=== PATIENT | female | born 1960 | race Caucasian/White ===

== ENCOUNTER → 2019-08-31 08:59 | Outpatient (CLI) | payer OTHER, SELFPAY ==
[2019-08-31 10:01] LABS: Add Manual Diff / Slide Review NO; Basophils Absolute Auto 0 /uL (0-100); Basophils Percent Auto 0.8 % (0-2); Eosinophils Absolute Auto 200 /uL (0-450); Eosinophils Percent Auto 3.6 % (2-4); Hematocrit 37.6 % (36-46); Lymphocytes Absolute Auto 2100 /uL (1100-4500); Lymphocytes Percent Auto 42.2 % (25-40); Mean Corpuscular HGB Conc 34.7 % (30-36); Mean Corpuscular Hemoglobin 29.5 PG (26-34); Mean Corpuscular Volume 85.2 fL (80-100); Monocytes Absolute Auto 400 /uL (0-900); Monocytes Percent Auto 7.2 % (3-14); Neutrophils Absolute Auto 2300 /uL (1500-7000); Neutrophils Percent Auto 46.2 % (50-75); Platelet Count 274 X10^3/uL (150-400); Red Blood Cell Count 4.42 X10^6/uL (4.0-5.2); Red Cell Distribution Width 12.4 % (11.6-14.8)
[2019-08-31 10:12] LABS: Alanine Aminotransferase 18 IU/L (<35); Albumin 4.5 g/dL (3.5-5.0); Albumin Globulin Ratio 1.9 (1.0-2.8); Alkaline Phosphatase 44 U/L (38-126); Aspartate Aminotransferase 26 IU/L (14-36); Bilirubin Total 0.7 mg/dL (0.2-1.3); Blood Urea Nitrogen 20 mg/dL (7-17); Calcium 9.6 mg/dL (8.4-10.2); Carbon Dioxide 30 mmol/L (22-32); Chloride 102 mmol/L (98-107); Cholesterol 233 mg/dL (140-199); Estimated Glomerular Filt Rate > 60.0 mL/min (>60); Globulin 2.4 g/dL (1.7-4.1); Glucose 89 mg/dL (70-100); HDL Cholesterol 78 mg/dL (40-60); HEMOLYSIS < 15 (0-50); LDL Cholesterol Calculated 143 mg/dL (<100); Potassium 4.4 mmol/L (3.4-5.1); Sodium 138 mmol/L (137-145); Total Protein 6.9 g/dL (6.3-8.2); Triglycerides 59 mg/dL (35-150)
[2019-08-31 10:16] LABS: Rheumatoid Factor < 8.6 IU/mL (<12.0)
[2019-09-05 08:20] LABS: ANA Screen, IFA POSITIVE (NEGATIVE)
== END ==
PROVIDERS: PCP Family Medicine; Visit Provider Naturopath
DX: Z00.00 Encounter for general adult medical examination without abnormal findings (principal); M25.549 Pain in joints of unspecified hand
CPT/HCPCS: 36415; 80053; 80061; 85025; 86038; 86430

== ENCOUNTER → 2020-06-03 09:55 | Outpatient (CLI) | payer OTHER, SELFPAY ==
[2020-06-04 16:59] LABS: COVID19 Sendout Not Detected (Not Detect)
== END ==
PROVIDERS: PCP Family Medicine; Visit Provider Physician Assistant
DX: Z11.59 Encounter for screening for other viral diseases (principal)
CPT/HCPCS: 87635

== ENCOUNTER → 2020-06-11 09:53 | Outpatient (CLI) | payer OTHER, SELFPAY ==
--- NOTE | 2020-06-11 | DI.CT.S_ITS ---
PROCEDURE: CT UE LT WO CON INDICATIONS: Fracture of unspecified part of left clavicle TECHNIQUE: Noncontrast 1-1.5 mm thick sections acquired from the acromioclavicular joint to the inferior scapula, with coronal and sagittal reformatting. COMPARISON: [facility] [place], CR, XR CLAVICLE LEFT, 04/24/2020, 10:45. [facility] [place], CR, XR SHOULDER 2+ VIEWS LEFT, 05/28/2020, 10:21. FINDINGS: Image quality: Excellent. Bones: There is a subacute appearing comminuted distal clavicular shaft fracture. There is up to 3 mm depression of distal clavicle at fracture side and up to 5 mm overlapping of fracture site. Callus formation surrounding clavicular shaft fracture site is seen with up to 4 mm diastasis at fracture site. Partial bony union is seen at distal clavicular shaft fracture site. No other fracture or dislocation is seen. No suspicious bony lesion. Mild acromioclavicular joint osteoarthritic changes are seen. Soft tissues: There is no full-thickness rotator cuff tendon rupture. No significant joint effusion or calcified intra-articular loose body. Visualized left upper lobe is clear. IMPRESSION: 1. Subacute appearing comminuted distal clavicular shaft fracture with minimal depression and overlapping of fracture site as above. Small amount of callus formation surrounding fracture site with suggestion of partial bony fusion. No new fracture or dislocation. 2. Mild acromioclavicular joint osteoarthritis. Dictated by: Lauri Rodriguez M.D. on 06/11/2020 at 10:35 Approved by: Lauri Rodriguez M.D. on 06/11/2020 at 11:25
== END ==
PROVIDERS: PCP Family Medicine; Referring Provider Family Medicine; Visit Provider Orthopaedic Surgery
DX: S42.022A Displaced fracture of shaft of left clavicle, initial encounter for closed fracture (principal); M19.012 Primary osteoarthritis, left shoulder; X58.XXXA Exposure to other specified factors, initial encounter
CPT/HCPCS: 73200

== ENCOUNTER → 2020-08-27 07:47 | Outpatient (CLI) | payer OTHER, SELFPAY ==
[2020-08-27 08:41] LABS: Add Manual Diff / Slide Review NO; Basophils Absolute Auto 0 /uL (0-100); Basophils Percent Auto 0.9 % (0-2); Eosinophils Absolute Auto 200 /uL (0-450); Eosinophils Percent Auto 3.5 % (2-4); Hematocrit 36.4 % (36-46); Hemoglobin 12.2 g/dL (12.0-16.0); Lymphocytes Absolute Auto 2000 /uL (1100-4500); Mean Corpuscular HGB Conc 33.6 % (30-36); Mean Corpuscular Hemoglobin 28.9 PG (26-34); Monocytes Absolute Auto 400 /uL (0-900); Monocytes Percent Auto 7.2 % (3-14); Neutrophils Absolute Auto 2300 /uL (1500-7000); Neutrophils Percent Auto 47.4 % (50-75); Platelet Count 293 X10^3/uL (150-400); Red Blood Cell Count 4.24 X10^6/uL (4.0-5.2); Red Cell Distribution Width 12.8 % (11.6-14.8); White Blood Cell Count 4.9 X10^3/uL (4.5-11.0)
[2020-08-27 09:14] LABS: Alanine Aminotransferase 20 IU/L (<35); Albumin 4.4 g/dL (3.5-5.0); Albumin Globulin Ratio 1.6 (1.0-2.8); Alkaline Phosphatase 48 U/L (38-126); Aspartate Aminotransferase 30 IU/L (14-36); BUN Creatinine Ratio 23.9 (6-22); Bilirubin Total 0.6 mg/dL (0.2-1.3); Blood Urea Nitrogen 21 mg/dL (7-17); Calcium 9.5 mg/dL (8.4-10.2); Carbon Dioxide 31 mmol/L (22-32); Chloride 101 mmol/L (98-107); Cholesterol 246 mg/dL (140-199); Estimated Glomerular Filt Rate > 60.0 mL/min (>60); Globulin 2.7 g/dL (1.7-4.1); Glucose 91 mg/dL (80-110); HDL Cholesterol 81 mg/dL (40-60); HEMOLYSIS < 15 (0-50); LDL Cholesterol Calculated 155 mg/dL (<100); Potassium 4.5 mmol/L (3.4-5.1); Sodium 139 mmol/L (137-145); Total Protein 7.1 g/dL (6.3-8.2); Triglycerides 52 mg/dL (35-150)
[2020-08-27 20:45] LABS: Rubella Antibody IgG 75.6 IU/mL (>15)
[2020-08-28 08:09] LABS: Rubeola Measles IgG > 300.0 AU/mL (Immune >16.4)
== END ==
PROVIDERS: PCP Family Medicine; Referring Provider Family Medicine; Visit Provider Family Medicine
DX: D05.00 Lobular carcinoma in situ of unspecified breast (principal); R91.1 Solitary pulmonary nodule; E78.5 Hyperlipidemia, unspecified; Z78.9 Other specified health status
CPT/HCPCS: 36415; 80053; 80061; 85025; 86735; 86762; 86765

== ENCOUNTER → 2020-08-28 11:51 | Outpatient (CLI) | payer OTHER, SELFPAY ==
--- NOTE | 2020-08-28 11:52 | DI.CT.S_ITS ---
PROCEDURE: CT CHEST WO CON INDICATIONS: follow up left lung nodule TECHNIQUE: Noncontrast 5 mm thick sections acquired from the pulmonary apices to the posterior costophrenic angles. 1 mm lung window, 5 mm thick coronal and sagittal and 7 mm axial MIP reformats were then acquired. For radiation dose reduction, the following was used: automated exposure control, adjustment of mA and/or kV according to patient size. COMPARISON: [facility], CT, CT CHEST ABDOMEN PELVIS WITHOUT CONTRAST, 03/14/2020, 11:47. FINDINGS: Image quality: Excellent. Lungs and pleura: A few small pulmonary nodules. For example: -left upper lobe subpleural 6 mm, (3/68), previously 6 mm. -left major fissure 4 mm, (3/147), previously 4 mm. -right major fissure 3 mm, (3/163), previously 3 mm. No new or enlarging pulmonary nodules. No pulmonary mass. No acute air space opacities. No pleural effusions or pneumothorax. Small right upper tracheocele, unchanged. Central airways are clear. Mediastinum: Heart size is normal. No pericardial effusion. No mediastinal adenopathy by size criteria. Thoracic aorta and central pulmonary arteries are normal in size. Esophagus is normal in caliber. No hiatal hernia. Bones and chest wall: And healing of the distal left clavicle fracture. No suspicious bony lesions. No vertebral body compression fractures. No axillary or supraclavicular adenopathy by size criteria. Thyroid gland is unremarkable. Abdomen: Visualized upper abdominal solid organs and bowel loops appear normal in the absence of contrast. Large left renal low-density cyst measuring at least 8.5 cm, (2/70), partially visualized. 2nd simple appearing left renal cyst measuring 4.2 cm. Small cyst in the right kidney. IMPRESSION: 1. A few small incidental pulmonary nodules which are stable compared to February 2020. Largest measuring 6 mm in the left upper lobe. -follow-up CT in 12 months is recommended to demonstrate stability. 2. No enlarged adenopathy. 3. Healing distal left clavicle fracture. Dictated by: Omer Finch M.D. on 08/28/2020 at 11:37 Approved by: Omer Finch M.D. on 08/28/2020 at 11:57
== END ==
PROVIDERS: PCP Family Medicine; Referring Provider Family Medicine; Visit Provider Family Medicine
DX: R91.8 Other nonspecific abnormal finding of lung field (principal); N28.1 Cyst of kidney, acquired
CPT/HCPCS: 71250

== ENCOUNTER → 2020-08-31 08:59 | Outpatient (CLI) | payer OTHER, SELFPAY | PROVIDERS: PCP Family Medicine; Visit Provider Family Medicine | DX: R30.0 Dysuria (principal) | CPT/HCPCS: 87077; 87086; 87186 ==

== ENCOUNTER → 2020-12-12 09:08 | Outpatient (CLI) | payer OTHER, SELFPAY ==
[2020-12-12 12:21] LABS: COVID19 -Nasal RAPID Negative (Negative)
== END ==
PROVIDERS: PCP Family Medicine; Visit Provider Surgery
DX: Z20.822 Contact with and (suspected) exposure to COVID-19 (principal)
CPT/HCPCS: 87635; C9803

== ENCOUNTER 2020-12-13 06:44 | Day surgery (SDC) | payer OTHER, SELFPAY ==
[2020-12-13] VITALS (7 sets, daily range): BP systolic 105–124; BP diastolic 62–81; PULSE 58–79; RESP 8–16; TEMP 36.3–36.4; O2SAT 95–100; BMI 20.7
--- NOTE | 2020-12-13 07:13 | PM.HP.1 ---
History of Present Illness History of Present Illness Date Patient Seen: 12/13/20 Time Patient Seen: 07:13 Chief complaint: SDC Narrative: This is a 60-year-old woman with personal history of colon polyps here for surveillance colonoscopy. She denies any new symptoms since her last colonoscopy. She specifically denies melena, hematochezia, unexplained abdominal pain, unexplained weight loss. She denies any family history of colon cancer. ROS: Thirteen system review is otherwise negative other than as mentioned below and in HPI. PE: GENERAL: Well groomed and cooperative. Appears stated age. Answers questions promptly and appropriately. Vital signs noted. HENT: Normocephalic, atraumatic. Hearing intact. EYES: Conjunctiva pink, sclera white, no periorbital swelling. CARDIOVASCULAR: Regular rate. No pedal edema. RESPIRATORY: Non-tachypneic, breathing comfortably on room air. GASTROINTESTINAL: Abdomen soft and non-distended GENITALURINARY: No flank tenderness. MUSCULOSKELETAL: Equal tone and mass bilaterally. SKIN: Warm, dry, soft, appropriate color for ethnicity. No other lesions, rashes, or wounds. NEURO: Alert and Oriented X 3. No gross sensory deficits, or cognitive issues. PSYCH: Appropriate affect and mood. Patient History Medical History Abnormal Pap smear of cervix (~1993) Acne Ankle pain (~2018) Chicken pox Closed left clavicular fracture Colon polyps Depression (~1986) Foot fracture (~2011) Human papilloma virus Lung nodule Measles Mumps Osteoarthritis of both hands Pelvic fracture Wears contact lenses Surgical History Anesthesia H/O tubal ligation Status post breast biopsy Status post breast biopsy Status post colonoscopy Status post dilation and curettage Status post hysteroscopy Status post sclerotherapy of varicose veins (~1998) Family & Social History Family History Father Cancer Diabetes mellitus Heart disease Hypertension High cholesterol Mother Age: 85 History of heart disease Mental health problem Lung cancer Sister Mental health problem Sister Heart disease Hyperlipidemia Mental health problem Sister Mental health problem Grandmother Cancer Hypertension Grandfather Stroke Grandmother Mental health problem Lung cancer Social History: household members spouse lives independently Yes Tobacco & Substance use: Smoking Status Never smoker alcohol intake current Meds Home Medications and Allergies Home Medications Medication Instructions Recorded Confirmed Type bupropion HCl 300 mg 24 hr tablet, See Rx Instructions .ROUTE 08/31/20 12/13/20 Rx extended release .COMPLEX #90 tab Allergies Allergy/AdvReac Type Severity Reaction Status Date / Time venom-honey bee Allergy Unknown Verified 12/10/20 08:32 [BEE VENOM (HONEY BEE)] Assessment & Plan Assessment and plan (1) Colon polyps: Problem details: Tubular adenoma, hyperplastic polyps 2016 Qualifiers: Colon location: unspecified part of colon Colon polyp type: hyperplastic Qualified Code(s): K63.5 - Polyp of colon Status: Acute Assessment & Plan narrative: Risks and benefits of screening colonoscopy and possible polypectomy were discussed with the patient including risk of bleeding, perforation, need for additional procedures, risks of anesthesia. The patient desires to proceed with the colonoscopy procedure. The patient said that she had some wakefulness during her prior colonoscopy. We discussed the possibility of rescheduling her with anesthesiologist. She would rather go ahead at this time, and we will be cognizant of her potential need for higher amount of sedation, and potentially call in the anesthesiologist to help us if needed. COVID-19 COVID-19 status: Negative Result date/Date tested (Pos, Neg/Pending): 12/12/20 Time Spent With Patient Time with patient: 15-24 minutes
[2020-12-13] MEDS: SODIUM CHLORIDE 0.9% 1,000 ML 200 ML IV (07:20)
--- NOTE | 2020-12-13 07:36 | PM.OP.ENDO ---
Operative Date/Time/Diagnoses Date of procedure: 12/13/20 Time of procedure: 07:36 Pre-op diagnosis: history colon polyps Post-op diagnosis: other (Aborted colonoscopy due to incomplete prep) Procedure & Clinicians Study performed: Colonoscopy to 70 cm, aborted because of incomplete prep Procedural sedation performed by the endoscopist Same procedure as scheduled: Yes Indications: Personal history of colon polyps, due for surveillance colonoscopy Surgeon: Johanny Francisco Procedure Notes SCOAP/Timeout: Performed Procedure in detail: The patient was brought to the room and placed in left lateral decubitus position with all bony prominences padded. A time-out was performed and then the patient was given procedural sedation starting with 4 mg of Versed and 10 mcg of fentanyl. An additional 2 mg of Versed and 50 micro g of fentanyl were given during the procedure. Vitals were monitored throughout the procedure and remained stable. Once adequately sedated, the procedure was begun. A rectal exam was performed revealing no abnormalities. The colonoscope was then introduced to the rectum and carefully advanced. There was solid stool and bulky fibrous debris throughout the rectum. On attempting to advance , the patient did not tolerate movement of the scope. She was given additional sedation, and turned onto her back, and I was able to advance the scope further. As I reached about 70 cm in the sigmoid and descending colon I continued to see solid stool and fibrous debris. I attempted to irrigate and wash out the debris, but the scope was continually clogging, and so the procedure was then aborted. I carefully examined each mucosal fold is average through the scope for the distal 70 cm of the colon. No abnormalities were seen, although the view was obscured by stool and fibrous debris. The scope was then withdrawn from the rectum the procedure was concluded. The patient tolerated the procedure well and was transferred to the PACU in stable condition. Sedation minutes: 15 Findings: other findings (Incomplete prep resulting in clogging of the scope and poor visualization) Impression: Aborted colonoscopy due to incomplete prep. Patient will need to do a 2 day prep with a low residual diet the week prior. She should also be scheduled with any anesthesiologist for sedation on all for future colonoscopies due to her intolerance of the procedure under conscious sedation. Post-procedure Recommendations: Other recommendation (As above, re-prep and reschedule scope with anesthesiologist for sedation at the patient's convenience) Follow up: as needed Disposition: PACU
[2020-12-13] MEDS: fentaNYL 250 MCG/5 ML INJ IV (07:45)
[2020-12-13] MEDS: MIDAZOLAM 5 MG/5 ML VIAL IV (08:00)
== END 2020-12-13 09:05 | disposition home or self-care (01) ==
PROVIDERS: PCP Family Medicine; Referring Provider Family Medicine; Visit Provider Surgery
PROC: 0DJD8ZZ Inspection of Lower Intestinal Tract, Via Natural or Artificial Opening Endoscopic (ICD-10-PCS; CPT 45378; principal; 2020-12-13 07:45)
DX: Z12.11 Encounter for screening for malignant neoplasm of colon (principal); Z86.010 Personal history of colon polyps; Z53.09 Procedure and treatment not carried out because of other contraindication
CPT/HCPCS: 45378; 99152; J2250; J3010

== ENCOUNTER → 2021-01-04 10:07 | Outpatient (CLI) | payer OTHER, SELFPAY ==
[2021-01-04 10:43] LABS: COVID19 -Nasal RAPID Negative (Negative)
== END ==
PROVIDERS: PCP Family Medicine; Visit Provider Surgery
DX: Z20.822 Contact with and (suspected) exposure to COVID-19 (principal)
CPT/HCPCS: 87635; C9803

== ENCOUNTER 2021-01-07 07:54 | Day surgery (SDC) | payer OTHER, SELFPAY ==
[2021-01-07] VITALS (8 sets, daily range): BP systolic 96–112; BP diastolic 61–67; PULSE 54–93; RESP 10–18; TEMP 36.2–36.6; O2SAT 96–100; BMI 19.5
--- NOTE | 2021-01-07 08:50 | PM.PREOP ---
Pre-operative Note COVID-19 COVID-19 status: Negative Result date/Date tested (Pos, Neg/Pending): 01/04/21 Interval Note History & Physical reviewed/Exam performed by Physician: Yes Changes to H&P: No
--- NOTE | 2021-01-07 09:32 | P.OP.ENDO_ITS ---
Operative Date/Time/Diagnoses Date of procedure: 01/07/21 Time of procedure: 09:32 Pre-op diagnosis: Personal history colon polyps, intolerance of procedural sedation Post-op diagnosis: same (Normal colon on today's exam) Procedure & Clinicians Study performed: Colonoscopy Same procedure as scheduled: Yes Indications: Personal history of colon polyps, unable to complete colonoscopy on prior attempt due to poor prep, and patient tolerance of procedural sedation. Today we have consulted the anesthesiologist to provide propofol for deep s edation, so that the patient would be able to tolerate the procedure. Surgeon: Johanny Francisco Procedure Notes SCOAP/Timeout: Performed Procedure in detail: The patient was brought to the room and placed in left lateral decubitus position with all bony prominences padded. A time-out was performed and then the patient was given MAC sedation with propofol by Dr. Shea. Vitals were monitored throughout the procedure and remained stable. Once adequately sedated, the procedure was begun. A rectal exam was performed revealing no abnormalities. The colonoscope was then introduced to the rectum and advanced to the cecum in the usual fashion. The colon was very tortuous com mon required multiple advance maneuvers to reach the cecum safely. The cecum was identified by the appendiceal orifice, the mucosal tri-fold, and the ileocecal valve. The scope was then retracted while rotating side to side and examining each mucosal fold. A few scattered diverticula were seen in the sigmoid colon. No significant evidence of diverticulitis was seen. At the conclusion of the procedure retroflexion was performed and small grade 1-2 internal hemorrhoids without stigmata of bleeding were seen. The scope was then withdrawn from the rectum the procedure was concluded. The patient tolerated the procedure well and was transferred to the PACU in stable condition. Scope withdrawal time: 7 Findings: diverticulosis Specimen(s): none sent Complications: none Impression: No polyps on today's exam. Mild diverticulosis. Post-procedure Recommendations: Colonscopy in 5 years (Due to history of colon polyps) Follow up: as needed Disposition: PACU
== END 2021-01-07 10:54 | disposition home or self-care (01) ==
PROVIDERS: PCP Family Medicine; Referring Provider Family Medicine; Visit Provider Surgery
PROC: 0DJD8ZZ Inspection of Lower Intestinal Tract, Via Natural or Artificial Opening Endoscopic (ICD-10-PCS; CPT 45378; principal; 2021-01-07 09:15)
DX: Z12.11 Encounter for screening for malignant neoplasm of colon (principal); Z86.010 Personal history of colon polyps; K57.30 Diverticulosis of large intestine without perforation or abscess without bleeding; K64.0 First degree hemorrhoids
CPT/HCPCS: 45378; 99152; J2250; J2704; J3010

== ENCOUNTER → 2021-03-06 12:54 | Outpatient (CLI) | payer OTHER, SELFPAY ==
[2021-03-06 13:00] LABS: Bacteria Urine None Seen; WBC Urine None Seen (0-5/HPF)
[2021-03-06 15:32] LABS: Appearance Urine UA CLEAR; Bilirubin Urine UA NEGATIVE (NEGATIVE); Color Urine UA YELLOW; Glucose Urine UA NEGATIVE (Negative); Ketones Urine UA NEGATIVE (NEGATIVE); Leukocyte Esterase Urine UA NEGATIVE (NEGATIVE); Nitrite Urine UA NEGATIVE (Negative); Occult Blood Urine UA TRACE-LYSED (Negative); Protein Urine UA NEGATIVE (Negative); Urobilinogen Urine UA 0.2 E.U./dL (0.2)
[2021-03-06 15:38] LABS: pH Urine UA 5.5 (4.5-8.0)
[2021-03-06 15:43] LABS: Amorphous Sediment Urine 2+; Culture Indicated Urine Cult Not Indicated; RBC Urine 5-10/HPF (0-5/HPF)
== END ==
PROVIDERS: PCP Family Medicine; Referring Provider Pediatrics; Visit Provider Pediatrics
DX: R30.0 Dysuria (principal)
CPT/HCPCS: 81001

== ENCOUNTER → 2021-08-08 09:49 | Outpatient (CLI) | payer OTHER, SELFPAY ==
--- NOTE | 2021-08-08 | DI.MRI.S_ITS ---
PROCEDURE: MR SHOULDER LT WO CON INDICATIONS: Fracture of unspecified part of left clavicle, sub TECHNIQUE: Noncontrast oblique coronal T2 fast spin echo with fat saturation, oblique sagittal T1 spin echo and T2 fast spin echo with fat saturation, axial T1 spin echo and T2 fast spin echo with fat saturation through the shoulder. COMPARISON: [facility] [place], CR, XR SHOULDER 2+ VIEWS LEFT, 07/23/2021, 11:50. FINDINGS: Image quality: Excellent. Rotator cuff: Mild T2 signal elevation throughout the supraspinatus and infraspinatus tendons at the humeral insertion sites extending to the musculotendinous junctions, indicating tendinopathy. The supraspinatus, infraspinatus, and subscapularis tendons appear intact throughout. Sagittal images demonstrate no muscle atrophy. Bones and bursae: No bone marrow contusions or fractures. Moderate acromioclavicular joint degeneration. The acromion demonstrates conventional anatomy, without an os acromiale. No pathologic subacromial-subdeltoid or subcoracoid bursal fluid is present. Capsule and soft tissues: Labrum is grossly unremarkable The long head of the biceps tendon demonstrates normal location and morphology. The rotator interval appears normal, without fibrosis. The coracohumeral ligament is normal in thickness. IMPRESSION: 1. Supraspinatus and infraspinatus tendinopathy. No rotator cuff tear. 2. Acromioclavicular joint osteoarthritis. Dictated by: Ronnie Contreras M.D. on 08/08/2021 at 9:21 Approved by: oRnnie Contreras M.D. on 08/08/2021 at 9:22
== END ==
PROVIDERS: PCP Family Medicine; Referring Provider Orthopaedic Surgery; Visit Provider Orthopaedic Surgery
DX: S42.002G Fracture of unspecified part of left clavicle, subsequent encounter for fracture with delayed healing (principal); M19.012 Primary osteoarthritis, left shoulder
CPT/HCPCS: 73221

== ENCOUNTER → 2021-11-01 10:05 | Outpatient (CLI) | payer OTHER, SELFPAY ==
--- NOTE | 2021-11-01 10:07 | DI.CT.S_ITS ---
PROCEDURE: CT CHEST WO CON INDICATIONS: F/U lung nodule TECHNIQUE: Noncontrast 5 mm thick sections acquired from the pulmonary apices to the posterior costophrenic angles. 1 mm lung window, 5 mm thick coronal and sagittal and 7 mm axial MIP reformats were then acquired. For radiation dose reduction, the following was used: automated exposure control, adjustment of mA and/or kV according to patient size. COMPARISON: [facility], CT, CT CHEST WO CON, 08/28/2020, 11:53. FINDINGS: Image quality: Excellent. Lungs and pleura: Pulmonary nodules are as follows: 1. Posterior pleural-based left upper lobe, current image 89/4, stable, 6 mm. 2. Decrease in size of left fissural nodule, previously 4 mm, now 3 mm, on current image 169/4. 3. Stable 3 mm right major fissural nodule, current image 182/4. 4. Stable ill-defined 4 mm nodule, right middle lobe, previous image 155/3 and current image 182/4. No new or increasing pulmonary nodules. No acute air space opacities. No pleural effusions or pneumothorax. Central and peripheral airways are patent and normal in caliber. Mediastinum: Heart size is normal. No pericardial effusion. No mediastinal adenopathy by size criteria. Thoracic aorta and central pulmonary arteries are normal in size. Esophagus is normal in caliber. No hiatal hernia. Bones and chest wall: No suspicious bony lesions. No vertebral body compression fractures. No axillary or supraclavicular adenopathy by size criteria. Thyroid gland is unremarkable . Abdomen: Again noted is a large left renal cyst measuring at least 8.5 cm. Visualized upper abdominal solid organs and bowel loops appear normal in the absence of contrast. IMPRESSION: 1. Multiple small pulmonary nodules have been stable dating back to February,, nearly 2 years. These are likely benign pulmonary nodules. Comment: If this patient has a significant smoking history, would recommend yearly lung screen CT. Dictated by: Eddie Ruggiero M.D. on 11/01/2021 at 11:57 Approved by: Eddie Ruggiero M.D. on 11/01/2021 at 12:21
== END ==
PROVIDERS: PCP Family Medicine; Referring Provider Family Medicine; Visit Provider Family Medicine
DX: R91.8 Other nonspecific abnormal finding of lung field (principal); N28.1 Cyst of kidney, acquired
CPT/HCPCS: 71250

== ENCOUNTER → 2021-11-05 07:48 | Outpatient (CLI) | payer OTHER, SELFPAY ==
[2021-11-05 09:17] LABS: Alanine Aminotransferase 17 IU/L (<35); Albumin 4.2 g/dL (3.5-5.0); Albumin Globulin Ratio 1.8 (1.0-2.8); Alkaline Phosphatase 35 U/L (38-126); Aspartate Aminotransferase 27 IU/L (14-36); BUN Creatinine Ratio 24.1 (6-22); Bilirubin Total 0.4 mg/dL (0.2-1.3); Blood Urea Nitrogen 20 mg/dL (7-17); Calcium 9.3 mg/dL (8.4-10.2); Carbon Dioxide 29 mmol/L (22-32); Chloride 105 mmol/L (98-107); Cholesterol 208 mg/dL (140-199); Estimated Glomerular Filt Rate > 60.0 mL/min (>60); Globulin 2.3 g/dL (1.7-4.1); Glucose 90 mg/dL (80-110); HDL Cholesterol 68 mg/dL (40-60); HEMOLYSIS < 15 (0-50); LDL Cholesterol Calculated 129 mg/dL (<100); Potassium 4.4 mmol/L (3.4-5.1); Sodium 139 mmol/L (137-145); Total Protein 6.5 g/dL (6.3-8.2); Triglycerides 55 mg/dL (35-150)
[2021-11-05 09:27] LABS: Vitamin D 25 Hydroxy (D3) 58.8 ng/mL (30.0-100.0)
== END ==
PROVIDERS: PCP Family Medicine; Referring Provider Family Medicine; Visit Provider Family Medicine
DX: D05.00 Lobular carcinoma in situ of unspecified breast; E55.9 Vitamin D deficiency, unspecified; E78.5 Hyperlipidemia, unspecified
CPT/HCPCS: 36415; 80053; 80061; 82306

== ENCOUNTER 2021-12-17 13:42 | Emergency (ER) | payer OTHER, SELFPAY ==
[2021-12-17] VITALS (8 sets, daily range): BP systolic 113–130; BP diastolic 60–76; PULSE 64–80; RESP 16–22; TEMP 36.7; O2SAT 98–100
--- NOTE | 2021-12-17 15:18 | DI.US.S_ITS ---
PROCEDURE: US ABDOMEN LIMITED INDICATIONS: RUQ PAIN TECHNIQUE: Real-time scanning was performed of the abdominal and retroperitoneal organs, with image documentation. COMPARISON: None. FINDINGS: Liver: Liver is normal in size and homogeneous in echotexture. Gallbladder: The gallbladder wall measures 2.1 mm in diameter. No stones, sludge, pericholecystic fluid, or sonographic Frank sign. Biliary ducts: Intrahepatic bile ducts are non-dilated. Extrahepatic bile duct caliber measures 3.7 mm. Normal is 6-7 mm or less in diameter, or 10 mm or less post-cholecystectomy. Pancreas: Visualized portions of the pancreas are sonographically normal. IMPRESSION: No cholelithiasis or findings to suggest choledocholithiasis or acute cholecystitis. Dictated by: Tamia Morin M.D. on 12/17/2021 at 16:20 Approved by: Tamia Morin M.D. on 12/17/2021 at 16:21
[2021-12-17 15:51] LABS: Lactate (Lactic Acid) 0.6 mmol/L (0.7-2.1)
--- NOTE | 2021-12-17 16:36 | ED_ITS ---
HPI - Abdominal Pain <Alfredo Kay PA-C - Last Filed: 12/17/21 17:24> General Chief Complaint: Abdominal Pain Stated Complaint: Severe upper right abd pain- sudden onset Time Seen by Provider: 12/17/21 14:53 Source: patient Mode of arrival: Ambulatory History of Present Illness HPI narrative: 61-year-old female with no reported past medical history presents to the ED with 1 day of right upper quadrant pain, diarrhea. Patient states that she had a 1st episode of diarrhea that was loose stools, without blood, was not dark black, followed by a sharp disabling right upper quadrant pain. Patient had several other episodes of diarrhea in the ED after that. Patient's abdominal pain resolved prior to coming into the ED. denies fever, chills, chest pain, shortness of breath, cough, nausea, vomiting, constipation, lightheadedness, dizziness, syncope. Patient did endorse some cloudy urine a few days ago when s he was traveling. Denies dysuria, frequency, urgency, flank pain. Patient denies history of abdominal surgeries. Patient denies history of gallstones, kidney stones. Related Data Previous Rx's Medication Instructions Recorded bupropion HCl 300 mg 24 hr tablet, 300 mg PO DAILY #90 tab 10/29/21 extended release Allergies Allergy/AdvReac Type Severity Reaction Status Date / Time No Known Drug Allergies Allergy Verified 01/07/21 08:05 Review of Systems <Alfredo Kay PA-C - Last Filed: 12/17/21 17:24> Review of Systems ROS Unobtainable: All systems reviewed & are unremarkable except as noted in HPI and below Constitutional Constitutional: Denies chills, Denies fatigue, Denies fever(s), Denies frequent falls, Denies lethargy and Denies weakness Eyes Eyes: Denies change in vision, Denies eye discharge, Denies irritation and Denies loss of vision ENT Ears, Nose, Mouth, and Throat: Denies change in voice, Denies dizziness, Denies neck pain, Denies sore throat and Denies throat swelling Cardiovascular Cardiovascular: Denies chest pain, Denies irregular heart rhythm, Denies lightheadedness, Denies palpitations, Denies dyspnea, Denies dyspnea on exertion and Denies orthopnea Respiratory Respiratory: Denies cough, Denies dyspnea, Denies dyspnea on exertion and Denies wheezing Gastrointestinal Gastrointestinal: Reports abdominal pain, Denies change in bowel habits, Reports diarrhea, Denies nausea and Denies vomiting Genitourinary Genitourinary: Denies hematuria, Denies flank pain, Denies urinary incontinence and Denies urinary urgency Musculoskeletal Musculoskeletal: Denies back pain, Denies muscle weakness, Denies neck pain, Denies numbness and Denies tingling Integumentary/Breasts Skin/Breast: Denies pruritus, Denies erythema, Denies rash and Denies wounds Neurologic Neurologic: Denies behavioral changes, Denies confusion, Denies dizziness, Denies frequent falls, Denies loss of vision, Denies numbness, Denies tingling and Denies weakness Psychiatric Psychiatric: Denies anxiety, Denies behavioral changes, Denies confusion, Denies depression, Denies homicidal ideation and Denies suicidal ideation Endocrine Endocrine: Denies fatigue, Denies flushing and Denies palpitations Hematologic/Lymphatic Hematologic/Lymphatic: Denies easy bruising Allergic/Immunologic Allergic/Immunologic: Denies urticaria, Denies throat swelling and Denies wheezing Patient History <Alfredo Kay PA-C - Last Filed: 12/17/21 17:24> Medical History Abnormal Pap smear of cervix (~1993) Acne Ankle pain (~2018) Chicken pox Closed left clavicular fracture Colon polyps Depression (~1986) Foot fracture (~2011) Human papilloma virus Lung nodule Measles Mumps Osteoarthritis of both hands Pelvic fracture Wears contact lenses Surgical History Anesthesia H/O tubal ligation Status post breast biopsy Status post breast biopsy Status post colonoscopy Status post dilation and curettage Status post hysteroscopy Status post sclerotherapy of varicose veins (~1998) Family History Father Cancer Diabetes mellitus Heart disease Hypertension High cholesterol Mother Age: 86 History of heart disease Mental health problem Lung cancer Sister Mental health problem Sister Heart disease Hyperlipidemia Mental health problem Sister Mental health problem Grandmother Cancer Hypertension Grandfather Stroke Grandmother Mental health problem Lung cancer Social History marital status: number of children: 3 household members: spouse lives independently: Yes occupational status: other Smoking Status: Never smoker alcohol intake: current substance use type: does not use Smoking Status: Never smoker alcohol intake frequency: a few times a week Substance Use Type: does not use Exam <Alfredo Kay PA-C - Last Filed: 12/17/21 17:24> Initial Vital Signs Initial Vital Signs: Vital Signs Temperature 98.1 F 12/17/21 13:51 Pulse Rate 80 12/17/21 13:51 Respiratory Rate 22 12/17/21 13:51 Blood Pressure 129/60 12/17/21 13:51 Pulse Oximetry 99 12/17/21 13:51 Const General: cooperative, healthy appearing and comfortable HENMT Head: normal to inspection Eyes General: Yes appearance normal, both eyes and all related structures Neck Neck: normal visual inspection Chest Chest: normal inspection of the chest Resp Effort & Inspection: normal respiratory effort Auscultation: clear to auscultation bilaterally Cardio Rate: regular rate Rhythm: regular rhythm GI Inspection: normal to inspection Other: Abdomen is soft, nondistended, tender to palpation in the right upper quadrant. General: No CVA tenderness Back/Spine/Pelvis Back: normal to inspection Skin General: no rashes or lesions noted Neuro General: patient alert, patient awake and patient oriented x3 Psych Appearance: grossly normal Mental Status: mental status grossly normal <Emiliano Espino DO - Last Filed: 12/20/21 00:46> Initial Vital Signs Initial Vital Signs: Vital Signs Temperature 98.1 F 12/17/21 13:51 Pulse Rate 80 12/17/21 13:51 Respiratory Rate 22 12/17/21 13:51 Blood Pressure 129/60 12/17/21 13:51 Pulse Oximetry 99 12/17/21 13:51 Course <Alfredo Kay PA-C - Last Filed: 12/17/21 17:24> Orders Ordered: ED Orders 12/17/21 13:45 Comprehensive Metabolic Panel Stat Lipase Stat Partial Thromboplastin Time Stat Prothrombin Time INR Stat 12/17/21 13:57 Complete Blood Count AUTO DIFF Stat Lactate (Lactic Acid) Stat 12/17/21 14:44 EKG-12 Lead Stat 12/17/21 15:18 US abdomen limited Stat Vital Signs Vital signs: Vital Signs - 8 hr 12/17/21 13:51 12/17/21 15:22 12/17/21 15:30 Temperature 98.1 F Pulse Rate 80 64 66 Respiratory Rate 22 Blood Pressure 129/60 130/74 115/65 Pulse Oximetry 99 98 99 12/17/21 16:00 12/17/21 16:01 12/17/21 16:30 Temperature Pulse Rate 72 72 69 Respiratory Rate Blood Pressure 128/73 113/67 Pulse Oximetry 99 99 100 <Emiliano Espino DO - Last Filed: 12/20/21 00:46> Orders Ordered: ED Orders 12/17/21 13:45 Comprehensive Metabolic Panel Stat Lipase Stat Partial Thromboplastin Time Stat Prothrombin Time INR Stat 12/17/21 13:57 Complete Blood Count AUTO DIFF Stat Lactate (Lactic Acid) Stat 12/17/21 14:44 EKG-12 Lead Stat 12/17/21 15:18 US abdomen limited Stat Vital Signs Vital signs: Vital Signs - 8 hr 12/17/21 13:51 12/17/21 15:22 12/17/21 15:30 Temperature 98.1 F Pulse Rate 80 64 66 Respiratory Rate 22 Blood Pressure 129/60 130/74 115/65 Pulse Oximetry 99 98 99 12/17/21 16:00 12/17/21 16:01 12/17/21 16:30 Temperature Pulse Rate 72 72 69 Respiratory Rate Blood Pressure 128/73 113/67 Pulse Oximetry 99 99 100 MDM - Abdominal Pain <Alfredo Kay PA-C - Last Filed: 12/17/21 17:24> Medical Records Attestation: I reviewed the patient's medical records. Lab Data Attestation: I reviewed the patient's lab results. Lab results narrative: Labs within normal limits. UA negative for UTI. Result diagrams: 12/17/21 13:57 12/17/21 13:45 Labs: Lab Results 12/17/21 12/17/21 12/17/21 Range/Units 13:45 13:45 13:45 WBC (4.5-11.0) X10^3/uL RBC (4.0-5.2) X10^6/uL Hgb (12.0-16.0) g/dL Hct (36-46) % MCV (80-100) fL MCH (26-34) PG MCHC (30-36) % RDW (11.6-14.8) % Plt Count (150-400) X10^3/uL Neut % (Auto) (50-75) % Lymph % (Auto) (25-40) % [place] % (Auto) (3-14) % Eos % (Auto) (2-4) % Baso % (Auto) (0-2) % Neut # (Auto) (4099-4528) /uL Lymph # (Auto) (4520-7988) /uL [place] # (Auto) (0-900) /uL Eos # (Auto) (0-450) /uL Baso # (Auto) (0-100) /uL PT 12.1 (10.1-12.7) SECONDS INR 1.1 (0.9-1.3) APTT 31 (26.4-36.2) SECONDS Sodium 141 (137-145) mmol/L Potassium 4.0 (3.4-5.1) mmol/L Chloride 104 (98-107) mmol/L Carbon Dioxide 30 (22-32) mmol/L BUN 22 H (7-17) mg/dL Creatinine 0.82 (0.52-1.04) mg/dL Estimated GFR > 60 (>60) mL/min BUN/Creatinine Ratio 26.8 H (6-22) Glucose 92 (80-110) mg/dL Lactate (0.7-2.1) mmol/L Calcium 9.1 (8.4-10.2) mg/dL Total Bilirubin 0.4 (0.2-1.3) mg/dL AST 40 H (14-36) IU/L ALT 27 (<35) IU/L Alkaline Phosphatase 45 (38-126) U/L Total Protein 7.3 (6.3-8.2) g/dL Albumin 4.6 (3.5-5.0) g/dL Globulin 2.7 (1.7-4.1) g/dL Albumin/Globulin Ratio 1.7 (1.0-2.8) Lipase 137 (23-300) U/L 12/17/21 12/17/21 Range/Units 13:57 13:57 WBC 6.1 (4.5-11.0) X10^3/uL RBC 3.94 L (4.0-5.2) X10^6/uL Hgb 11.7 L (12.0-16.0) g/dL Hct 34.0 L (36-46) % MCV 86.3 (80-100) fL MCH 29.6 (26-34) PG MCHC 34.3 (30-36) % RDW 12.7 (11.6-14.8) % Plt Count 283 (150-400) X10^3/uL Neut % (Auto) 51.7 (50-75) % Lymph % (Auto) 38.6 (25-40) % [place] % (Auto) 6.7 (3-14) % Eos % (Auto) 2.4 (2-4) % Baso % (Auto) 0.6 (0-2) % Neut # (Auto) 3100 (8353-6815) /uL Lymph # (Auto) 2400 (6115-3348) /uL [place] # (Auto) 400 (0-900) /uL Eos # (Auto) 100 (0-450) /uL Baso # (Auto) 0 (0-100) /uL PT (10.1-12.7) SECONDS INR (0.9-1.3) APTT (26.4-36.2) SECONDS Sodium (137-145) mmol/L Potassium (3.4-5.1) mmol/L Chloride (98-107) mmol/L Carbon Dioxide (22-32) mmol/L BUN (7-17) mg/dL Creatinine (0.52-1.04) mg/dL Estimated GFR (>60) mL/min BUN/Creatinine Ratio (6-22) Glucose (80-110) mg/dL Lactate 0.6 L (0.7-2.1) mmol/L Calcium (8.4-10.2) mg/dL Total Bilirubin (0.2-1.3) mg/dL AST (14-36) IU/L ALT (<35) IU/L Alkaline Phosphatase (38-126) U/L Total Protein (6.3-8.2) g/dL Albumin (3.5-5.0) g/dL Globulin (1.7-4.1) g/dL Albumin/Globulin Ratio (1.0-2.8) Lipase (23-300) U/L Point of care testing: Urine Dip Bedside Urine Glucose Negative Bedside Urine Bilirubin - Negative Bedside Urine Ketone - Negative Urine Specific [place] 1.015 Bedside Urine Occult Blood - Negative Bedside Urine pH 6.0 Bedside Urine Protein - Negative Bedside Urine Urobilinogen - Negative Bedside Urine Nitrite - Negative Bedside Urine Leukocytes - Negative Esterase Imaging Data US - abdomen: Radiologist's Impression: PROCEDURE:? US ABDOMEN LIMITED ? INDICATIONS:? RUQ PAIN ? TECHNIQUE:? Real-time scanning was performed of the abdominal and retroperitoneal organs, w ith image documentation.? ? COMPARISON:? None. ? FINDINGS:? ? Liver:? Liver is normal in size and homogeneous in echotexture.? ? Gallbladder:? The gallbladder wall measures 2.1 mm in diameter.? No stones, sludge, pericholecystic fluid, or sonographic Frank sign.? ? Biliary ducts:? Intrahepatic bile ducts are non-dilated.? Extrahepatic bile duct caliber measures 3.7 mm.? Normal is 6-7 mm or less in diameter, or 10 mm or less post-cholecystectomy.? ? Pancreas:? Visualized portions of the pancreas are sonographically normal.? ? ? IMPRESSION:? No cholelithiasis or findings to suggest choledocholithiasis or acute cholecystitis. ? Dictated by: Tamia Morin M.D. on 12/17/2021 at 16:20 ? ? Approved by: Tamia Morin M.D. on 12/17/2021 at 16:21 ? [facility] Narrative Medical decision making narrative: 61-year-old female with no reported past medical history presents to the ED with 1 day of right upper quadrant pain, diarrhea. Concern for gastroenteritis versus cholecystitis versus biliary colic versus UTI. Will order labs, lactate, ultrasound abdomen, UA. Patient reports no pain while in the ED, no pain medications indicated. Will reassess. CT abdomen pelvis without acute findings. Labs within normal limits. Patient's symptoms likely due to gastroenteritis. Discharged patient home with ED return precautions. Patient verbalized understanding. <Emiliano Espino, DO - Last Filed: 12/20/21 00:46> Lab Data Labs: Lab Results 12/17/21 12/17/21 12/17/21 Range/Units 13:45 13:45 13:45 WBC (4.5-11.0) X10^3/uL RBC (4.0-5.2) X10^6/uL Hgb (12.0-16.0) g/dL Hct (36-46) % MCV (80-100) fL MCH (26-34) PG MCHC (30-36) % RDW (11.6-14.8) % Plt Count (150-400) X10^3/uL Neut % (Auto) (50-75) % Lymph % (Auto) (25-40) % [place] % (Auto) (3-14) % Eos % (Auto) (2-4) % Baso % (Auto) (0-2) % Neut # (Auto) (2002-6676) /uL Lymph # (Auto) (5112-8716) /uL [place] # (Auto) (0-900) /uL Eos # (Auto) (0-450) /uL Baso # (Auto) (0-100) /uL PT 12.1 (10.1-12.7) SECONDS INR 1.1 (0.9-1.3) APTT 31 (26.4-36.2) SECONDS Sodium 141 (137-145) mmol/L Potassium 4.0 (3.4-5.1) mmol/L Chloride 104 (98-107) mmol/L Carbon Dioxide 30 (22-32) mmol/L BUN 22 H (7-17) mg/dL Creatinine 0.82 (0.52-1.04) mg/dL Estimated GFR > 60 (>60) mL/min BUN/Creatinine Ratio 26.8 H (6-22) Glucose 92 (80-110) mg/dL Lactate (0.7-2.1) mmol/L Calcium 9.1 (8.4-10.2) mg/dL Total Bilirubin 0.4 (0.2-1.3) mg/dL AST 40 H (14-36) IU/L ALT 27 (<35) IU/L Alkaline Phosphatase 45 (38-126) U/L Total Protein 7.3 (6.3-8.2) g/dL Albumin 4.6 (3.5-5.0) g/dL Globulin 2.7 (1.7-4.1) g/dL Albumin/Globulin Ratio 1.7 (1.0-2.8) Lipase 137 (23-300) U/L 12/17/21 12/17/21 Range/Units 13:57 13:57 WBC 6.1 (4.5-11.0) X10^3/uL RBC 3.94 L (4.0-5.2) X10^6/uL Hgb 11.7 L (12.0-16.0) g/dL Hct 34.0 L (36-46) % MCV 86.3 (80-100) fL MCH 29.6 (26-34) PG MCHC 34.3 (30-36) % RDW 12.7 (11.6-14.8) % Plt Count 283 (150-400) X10^3/uL Neut % (Auto) 51.7 (50-75) % Lymph % (Auto) 38.6 (25-40) % [place] % (Auto) 6.7 (3-14) % Eos % (Auto) 2.4 (2-4) % Baso % (Auto) 0.6 (0-2) % Neut # (Auto) 3100 (2594-8860) /uL Lymph # (Auto) 2400 (1382-7525) /uL [place] # (Auto) 400 (0-900) /uL Eos # (Auto) 100 (0-450) /uL Baso # (Auto) 0 (0-100) /uL PT (10.1-12.7) SECONDS INR (0.9-1.3) APTT (26.4-36.2) SECONDS Sodium (137-145) mmol/L Potassium (3.4-5.1) mmol/L Chloride (98-107) mmol/L Carbon Dioxide (22-32) mmol/L BUN (7-17) mg/dL Creatinine (0.52-1.04) mg/dL Estimated GFR (>60) mL/min BUN/Creatinine Ratio (6-22) Glucose (80-110) mg/dL Lactate 0.6 L (0.7-2.1) mmol/L Calcium (8.4-10.2) mg/dL Total Bilirubin (0.2-1.3) mg/dL AST (14-36) IU/L ALT (<35) IU/L Alkaline Phosphatase (38-126) U/L Total Protein (6.3-8.2) g/dL Albumin (3.5-5.0) g/dL Globulin (1.7-4.1) g/dL Albumin/Globulin Ratio (1.0-2.8) Lipase (23-300) U/L Point of care testing: Urine Dip Bedside Urine Glucose Negative Bedside Urine Bilirubin - Negative Bedside Urine Ketone - Negative Urine Specific [place] 1.015 Bedside Urine Occult Blood - Negative Bedside Urine pH 6.0 Bedside Urine Protein - Negative Bedside Urine Urobilinogen - Negative Bedside Urine Nitrite - Negative Bedside Urine Leukocytes - Negative Esterase Discharge Plan Departure Patient Disposition: Home Clinical Impression: Abdominal pain Instructions: DI for Abdominal Pain-Adult Activity Restrictions/Additional Instructions: You were evaluated in the ED today for abdominal pain and diarrhea. Your labs, ultrasound of the abdomen did not show any acute findings. Your symptoms are likely due to gastroenteritis caused by something you ate or drink. Please continue to stay well hydrated. Return to the ED if you are unable to keep down liquids or solids, you develop a fever, chills or your abdominal pain worsens. Prescriptions: No Action bupropion HCl 300 mg tablet extended release 24 hr 300 mg PO DAILY Qty: 90 3RF Referrals: Sandra Loja DO [Primary Care Provider] - <Emiliano Espino DO - Last Filed: 12/20/21 00:46> Cosign ED Attending Srinivasaature Attestation: I was immediately available in the department for consultation. Documentation has been reviewed. I agree with assessment and plan.
[2021-12-17 16:43] LABS: PTT Partial Thromboplastin Tim 31 SECONDS (26.4-36.2)
[2021-12-17 16:44] LABS: Alanine Aminotransferase 27 IU/L (<35); Albumin 4.6 g/dL (3.5-5.0); Albumin Globulin Ratio 1.7 (1.0-2.8); Alkaline Phosphatase 45 U/L (38-126); Aspartate Aminotransferase 40 IU/L (14-36); BUN Creatinine Ratio 26.8 (6-22); Bilirubin Total 0.4 mg/dL (0.2-1.3); Blood Urea Nitrogen 22 mg/dL (7-17); Calcium 9.1 mg/dL (8.4-10.2); Carbon Dioxide 30 mmol/L (22-32); Chloride 104 mmol/L (98-107); Estimated Glomerular Filt Rate > 60 mL/min (>60); Globulin 2.7 g/dL (1.7-4.1); Glucose 92 mg/dL (80-110); HEMOLYSIS < 15 (0-50); Lipase 137 U/L (23-300); Sodium 141 mmol/L (137-145); Total Protein 7.3 g/dL (6.3-8.2)
[2021-12-17 16:49] LABS: INR 1.1 (0.9-1.3); Prothrombin Time 12.1 SECONDS (10.1-12.7)
[2021-12-17 17:00] LABS: Add Manual Diff / Slide Review NO; Basophils Absolute Auto 0 /uL (0-100); Basophils Percent Auto 0.6 % (0-2); Eosinophils Absolute Auto 100 /uL (0-450); Eosinophils Percent Auto 2.4 % (2-4); Hemoglobin 11.7 g/dL (12.0-16.0); Lymphocytes Absolute Auto 2400 /uL (1100-4500); Lymphocytes Percent Auto 38.6 % (25-40); Mean Corpuscular HGB Conc 34.3 % (30-36); Mean Corpuscular Hemoglobin 29.6 PG (26-34); Mean Corpuscular Volume 86.3 fL (80-100); Monocytes Absolute Auto 400 /uL (0-900); Monocytes Percent Auto 6.7 % (3-14); Neutrophils Absolute Auto 3100 /uL (1500-7000); Neutrophils Percent Auto 51.7 % (50-75); Platelet Count 283 X10^3/uL (150-400); Red Blood Cell Count 3.94 X10^6/uL (4.0-5.2); Red Cell Distribution Width 12.7 % (11.6-14.8); White Blood Cell Count 6.1 X10^3/uL (4.5-11.0)
== END 2021-12-17 17:25 | disposition home or self-care (01) ==
PROVIDERS: Emergency Medicine; Emergency Provider Student in an Organized Health Care Education/Training Program; Family Provider Family Medicine; PCP Family Medicine
DX: R10.11 Right upper quadrant pain (principal)
CPT/HCPCS: 36415; 76705; 80053; 81003; 83605; 83690; 85025; 85610; 85730; 93005; 99283; 99284

== ENCOUNTER 2022-01-07 09:00 | Outpatient (RCR) | payer OTHER, SELFPAY ==
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
--- NOTE | 2021-11-27 12:00 | PT.OPPOC ---
Physical, Occupational & Speech Therapy At [facility] Current Diagnoses Pain in right hip (11/27/21) Difficulty in walking, not elsewhere classified (11/27/21) Visit Care Team Role Provider Type Sandra Loja DO Attending Provider Physician Family Provider Primary Care Provider Referring Provider Specialty: Family Practice Address: [address] [place] [address], [place], [place], [facility] Email: [email or web address] Plan Of Care PT-OP-T Assessment and Plan Start: 11/25/21 16:57 Freq: Status: Active Protocol: Document 11/27/21 12:00 AW (Rec: 11/28/21 17:54 AW [id number]) Physical Therapy Assessment Rehab Potential Rehabilitation Potential Good Evaluation Complexity Number of Personal Factors/Comorbidities 1-2 Number of Body Systems Impaired 1-2 Clinical Presentation at Evaluation Evolving Impairments Impairments Balance,Gait,Pain,ROM,Soft Tissue Mobility,Strength Goals Three Impairment pain limits walking/hiking tolerance Short Term Goal (STG) Pt will tolerate one hour of walking on gently sloping terrain without increase in baseline pain. STG Duration 6 weeks - 01/08/22 Longterm Goal (LTG) Pt will walk up [place] [address] without increase in baseline pain LTG Duration 12 weeks - 02/19/22 Two Impairment painful ROM Short Term Goal (STG) Pt will tolerate end-range right hip internal roation without increase in baseline pain. STG Duration 6 weeks - 01/08/22 Longterm Goal (LTG) Pt will tolerate end-range right hip flexion without increase in baseline pain. LTG Duration 12 weeks - 02/19/22 One Impairment lacks HEP Short Term Goal (STG) Pt will be instructed in HEP for hip mobility, pelvic alignment, and strength to support therapy services provided in clinic. STG Duration 6 weeks - 01/08/22 Longterm Goal (LTG) Pt will be independent with HEP for hip mobility, pelvic alignment, and strength for return to regular walking and hiking without pain. LTG Duration 12 weeks - 02/19/22 Assessment Summary Assessment Jacqui is a 61 yo woman who attends outpatient physical therapy with complaints of right groin pain which started a few months ago while walking 7+ miles daily on vacation. She is typically active and well-accustomed to walking up hills. Her vacation walking represented an increase in activity only in number of consecutive days. She presents with tenderness along iliopsoas at the inguinal fold and reports a catch which is worse while walking up hills. Signs and symptoms are consistent with psoas tendinopathy, femoral acetabular impingement, or labral pathology. Pt is expected to benefit from skilled physical therapy to manage her pain, improve her pain-free ROM, and return her to regular activity with the goal of walking a [place] this fall in [place]. Physical Therapy Plan Frequency and Duration Frequency of Treatment 2x/Week Duration of Treatment 12 weeks Plan of Care Start Date 11/27/21 Plan of Care End Date 02/19/22 Therapeutic Interventions Therapeutic Interventions Balance Training,Gait Training ,Home Exercise Program,Joint Mobilizations,Manual Therapy, Neuromuscular Re-education, Self-Care/Home Management,Soft Tissue Mobilization, Therapeutic Activities, Therapeutic Exercises Modalities Cold Pack/Ice Massage,Hot Packs Next Visit Focus/Plan Next Note Type Treatment Note Next Visit Plan Review pelvic alignment exercises. STM R iliopsoas. Consider right hip inferior glides. Address pelvic tilt. Initiate posterior chain strengthening. Plan of Care Dates Plan of Care Start Date 11/27/21 Plan of Care End Date 02/19/22 Electronically Signed by: Tory Quintanilla PT 11/28/21 [id number] Please Sign and Return: I have reviewed this Plan of Care and certify that the skilled therapy services above are required to meet the patient?s needs. Physician Signature Date Printed Name and Credentials Clinical Instructor Signature Printed Name and Credentials
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
== END 2022-06-24 11:26 | disposition home or self-care (01) ==
LOC: PHYS 09:00
PROVIDERS: Family Provider Family Medicine; PCP Family Medicine; Referring Provider Family Medicine; Visit Provider Family Medicine
DX: M25.551 Pain in right hip (principal); R26.2 Difficulty in walking, not elsewhere classified
CPT/HCPCS: 97110; 97140; 97161

== ENCOUNTER → 2022-07-18 09:15 | Outpatient (CLI) | payer OTHER, SELFPAY ==
[2022-07-18 10:17] LABS: Influenza A - CEPHEID Flu A NEGATIVE (NEGATIVE); Influenza B - CEPHEID Flu B NEGATIVE (NEGATIVE); Respiratory Syncytial Virus Negative (Negative)
[2022-07-18 10:18] LABS: COVID-19 CEPHEID 4-PLEX PCR Negative (Negative)
== END ==
PROVIDERS: Family Provider Family Medicine; PCP Family Medicine; Visit Provider Physician Assistant
DX: R05.9 Cough, unspecified (principal)
CPT/HCPCS: 0241U

== ENCOUNTER → 2022-11-10 15:32 | Outpatient (CLI) | payer OTHER, SELFPAY ==
--- NOTE | 2022-11-10 15:35 | DI.RAD.S_ITS ---
PROCEDURE: XR CERVICAL SPINE 2V OR 3V INDICATIONS: neck pain TECHNIQUE: Three views of the cervical spine were acquired. COMPARISON: [facility], CT, CT CERVICAL SPINE WITHOUT CONTRAST, 03/14/2020, 11:41. FINDINGS: Bones: No acute fractures or dislocations to the T1 level. There is mild reversal of the normal cervical lordosis, which may be secondary to muscle spasm or positioning. The lateral masses of C1 appear intact on the odontoid view. No suspicious bony lesions. Multilevel disc space narrowing degenerative endplate changes are seen that are most prominent at the C5-6 disc space level. There is multilevel uncovertebral joint and facet hypertrophy. Soft tissues: No prevertebral soft tissue swelling. IMPRESSION: Moderate multilevel spondylosis. MRI could be performed for further evaluation if indicated clinically. Approved by: Lukasz Barry M.D. on 11/10/2022 at 20:12
[2022-11-10 16:16] LABS: Add Manual Diff / Slide Review NO; Basophils Absolute Auto 100 /uL (0-100); Basophils Percent Auto 0.7 % (0-2); Eosinophils Absolute Auto 200 /uL (0-450); Eosinophils Percent Auto 2.8 % (2-4); Hematocrit 37.2 % (36-46); Hemoglobin 12.9 g/dL (12.0-16.0); Lymphocytes Absolute Auto 3500 /uL (1100-4500); Lymphocytes Percent Auto 45.3 % (25-40); Mean Corpuscular HGB Conc 34.6 % (30-36); Mean Corpuscular Hemoglobin 29.7 PG (26-34); Mean Corpuscular Volume 85.9 fL (80-100); Monocytes Absolute Auto 500 /uL (0-900); Monocytes Percent Auto 6.6 % (3-14); Neutrophils Absolute Auto 3500 /uL (1500-7000); Neutrophils Percent Auto 44.6 % (50-75); Platelet Count 315 X10^3/uL (150-400); Red Blood Cell Count 4.33 X10^6/uL (4.0-5.2); Red Cell Distribution Width 12.7 % (11.6-14.8); White Blood Cell Count 7.8 X10^3/uL (4.5-11.0)
[2022-11-10 16:35] LABS: Alanine Aminotransferase 23 IU/L (<35); Albumin 4.7 g/dL (3.5-5.0); Albumin Globulin Ratio 1.7 (1.0-2.8); Alkaline Phosphatase 51 U/L (38-126); Aspartate Aminotransferase 30 IU/L (14-36); BUN Creatinine Ratio 19.5 (6-22); Bilirubin Total 0.5 mg/dL (0.2-1.3); Blood Urea Nitrogen 16 mg/dL (7-17); Calcium 9.5 mg/dL (8.4-10.2); Carbon Dioxide 29 mmol/L (22-32); Chloride 101 mmol/L (98-107); Estimated Glomerular Filt Rate > 60 mL/min (>60); Globulin 2.8 g/dL (1.7-4.1); Glucose 71 mg/dL (80-110); HEMOLYSIS < 15 (0-50); Potassium 4.3 mmol/L (3.4-5.1); Sodium 139 mmol/L (137-145); Total Protein 7.5 g/dL (6.3-8.2)
== END ==
PROVIDERS: Family Provider Family Medicine; PCP Family Medicine; Referring Provider Family Medicine; Visit Provider Family Medicine
DX: M47.812 Spondylosis without myelopathy or radiculopathy, cervical region (principal); M54.2 Cervicalgia; D64.9 Anemia, unspecified; R74.01 Elevation of levels of liver transaminase levels
CPT/HCPCS: 36415; 72040; 80053; 85025

== ENCOUNTER → 2023-03-06 07:05 | Outpatient (CLI) | payer OTHER, SELFPAY ==
--- NOTE | 2023-03-06 07:08 | DI.RAD.S_ITS ---
PROCEDURE: XR HUMERUS LT 2V INDICATIONS: Pain left distal medial humerus x 2 months TECHNIQUE: 2 views of the humerus were acquired. COMPARISON: None. FINDINGS: Bones: No fractures or dislocations. No suspicious bony lesions. Mild acromioclavicular osteoarthritis. Soft tissues: No suspicious soft tissue calcifications. IMPRESSION: No acute fracture or dislocation. Dictated by: Jimbo Yoo M.D. on 03/06/2023 at 9:18 Approved by: Jimbo Yoo M.D. on 03/06/2023 at 9:19
--- NOTE | 2023-03-06 07:08 | DI.MRI.S_ITS ---
PROCEDURE: MR CERVICAL SPINE WO CON INDICATIONS: Neck pain; weakness L hand; pain L distal humerus TECHNIQUE: Noncontrast sagittal T1 spin echo and T2 fast spin echo, sagittal STIR, foraminal oblique sagittal T2 fast spin echo, and axial gradient echo or T2 fast spin echo through the cervical spine. COMPARISON: [facility], CT, CT CERVICAL SPINE WITHOUT CONTRAST, 03/14/2020, 11:41. [facility], CR, XR CERVICAL SPINE 2V OR 3V, 11/10/2022, 15:31. FINDINGS: Image quality: Excellent. Alignment and Curvature: There is loss of normal cervical lordosis. 2 mm of anterolisthesis of C3 on C4. 2 mm of retrolisthesis of C5 on C6 and C6 on C7. Bone Marrow: Marrow demonstrates normal overall signal. Mild reactive signal throughout the endplates of the cervical and upper thoracic spine. Spinal Cord: Visualized spinal cord has normal size and signal. No cerebellar tonsillar herniation. Paraspinous Soft Tissues: No paravertebral masses. Prevertebral soft tissues are normal in thickness. C2-C3: Mild disc desiccation and diffuse disc bulge with superimposed small central protrusion. Mild facet and uncovertebral hypertrophy bilaterally. Mild canal stenosis. Mild right foraminal stenosis. No left foraminal stenosis. C3-C4: Moderate disc desiccation. Mild diffuse disc bulge. Mild facet and uncovertebral hypertrophy bilaterally. Mild canal stenosis. Mild bilateral foraminal stenosis. C4-C5: Mild disc desiccation and diffuse disc bulge. Mild facet and uncovertebral hypertrophy. Mild canal stenosis. Mild bilateral foraminal stenosis. C5-C6: Moderate disc height loss and desiccation. Mild diffuse disc bulge with superimposed broad-based left posterolateral protrusion/osteophyte. Mild facet and uncovertebral hypertrophy bilaterally. Moderate to severe canal stenosis. Minimal anterior cord flattening. Severe left and moderate right foraminal stenosis. Left C6 nerve root compression. C6-C7: Moderate disc desiccation. Mild disc height loss and diffuse disc bulge. Mild facet and uncovertebral hypertrophy bilaterally. Moderate canal stenosis. Moderate bilateral foraminal stenosis. C7-T1: Moderate disc desiccation. Mild facet and uncovertebral hypertrophy. No significant canal stenosis. Mild bilateral foraminal stenosis. IMPRESSION: 1. Multilevel degenerative disc and facet disease, as well as uncovertebral hypertrophy. 2. Multilevel canal stenoses, worst at C5-C6 where there is minimal cord flattening. 3. Multilevel foraminal stenoses, worst at C5-C6 where there is associated intraforaminal nerve root compression. Recommend correlation with clinical symptoms to ascertain relevance of this finding. Dictated by: Ronnie Contreras M.D. on 03/06/2023 at 8:47 Approved by: Ronnie Contreras M.D. on 03/06/2023 at 9:08
[2023-03-06 09:46] LABS: Add Manual Diff / Slide Review NO; Basophils Absolute Auto 0 /uL (0-100); Basophils Percent Auto 0.9 % (0-2); Eosinophils Absolute Auto 200 /uL (0-450); Eosinophils Percent Auto 5.4 % (2-4); Hematocrit 35.6 % (36-46); Hemoglobin 12.3 g/dL (12.0-16.0); Lymphocytes Absolute Auto 1600 /uL (1100-4500); Lymphocytes Percent Auto 36.4 % (25-40); Mean Corpuscular HGB Conc 34.5 % (30-36); Mean Corpuscular Hemoglobin 29.9 PG (26-34); Mean Corpuscular Volume 86.6 fL (80-100); Monocytes Absolute Auto 400 /uL (0-900); Monocytes Percent Auto 8.3 % (3-14); Neutrophils Absolute Auto 2100 /uL (1500-7000); Platelet Count 275 X10^3/uL (150-400); Red Cell Distribution Width 12.7 % (11.6-14.8); White Blood Cell Count 4.3 X10^3/uL (4.5-11.0)
[2023-03-06 10:20] LABS: Alanine Aminotransferase 23 IU/L (<35); Albumin 4.3 g/dL (3.5-5.0); Albumin Globulin Ratio 1.5 (1.0-2.8); Alkaline Phosphatase 44 U/L (38-126); Aspartate Aminotransferase 34 IU/L (14-36); BUN Creatinine Ratio 18.4 (6-22); Bilirubin Total 0.4 mg/dL (0.2-1.3); Blood Urea Nitrogen 14 mg/dL (7-17); C-Reactive Protein Quant < 0.5 mg/dL (<1.0); Calcium 8.7 mg/dL (8.4-10.2); Carbon Dioxide 34 mmol/L (22-32); Chloride 101 mmol/L (98-107); Cholesterol 211 mg/dL (140-199); Estimated Glomerular Filt Rate > 60 mL/min (>60); Globulin 2.8 g/dL (1.7-4.1); Glucose 86 mg/dL (80-110); HDL Cholesterol 66 mg/dL (40-60); HEMOLYSIS < 15 (0-50); LDL Cholesterol Calculated 127 mg/dL (<100); Potassium 4.1 mmol/L (3.4-5.1); Rheumatoid Factor < 8.6 IU/mL (<12.0); Sodium 139 mmol/L (137-145); Total Protein 7.1 g/dL (6.3-8.2); Triglycerides 91 mg/dL (35-150)
[2023-03-06 10:32] LABS: Free T3, Triiodothyronine Free 3.25 pg/mL (2.77-5.27); Free T4, Direct Thyroxine 0.91 ng/dL (0.78-2.19)
[2023-03-06 10:51] LABS: Ferritin 16 ng/mL (11-264)
[2023-03-07 09:30] LABS: Thyroid Peroxidase Antibodies 14 IU/mL (0-34)
== END ==
PROVIDERS: Naturopath; PCP Physician Assistant; Referring Provider Physician Assistant; Visit Provider Physician Assistant
DX: Z00.00 Encounter for general adult medical examination without abnormal findings (principal); M47.22 Other spondylosis with radiculopathy, cervical region; M48.02 Spinal stenosis, cervical region; M50.11 Cervical disc disorder with radiculopathy, high cervical region; M89.8X2 Other specified disorders of bone, upper arm; M25.549 Pain in joints of unspecified hand; R53.83 Other fatigue; Z86.2 Personal history of diseases of the blood and blood-forming organs and certain disorders involving the immune mechanism
CPT/HCPCS: 36415; 72141; 73060; 80053; 80061; 82728; 84439; 84443; 84481; 85025; 86140; 86376; 86430

== ENCOUNTER → 2023-03-26 14:20 | Outpatient (CLI) | payer OTHER, SELFPAY | PROVIDERS: PCP Family Medicine; Referring Provider Physician Assistant; Visit Provider Physician Assistant | DX: R00.0 Tachycardia, unspecified (principal); R00.2 Palpitations | CPT/HCPCS: 93246 ==

== ENCOUNTER 2023-04-03 14:34 | Emergency (ER) | payer OTHER, SELFPAY ==
[2023-04-03 14:54] VITALS: BP 140/69; PULSE 82; RESP 20; TEMP 36.8; O2SAT 100; BMI 20.7
--- NOTE | 2023-04-03 15:15 | DI.RAD.S_ITS ---
PROCEDURE: XR CHEST 1V INDICATIONS: chest pain TECHNIQUE: One view of the chest was acquired. COMPARISON: None. FINDINGS: Surgical changes and devices: Cardiac monitoring device. Lungs and pleura: Lungs are clear. No pleural effusions or pneumothorax. Mediastinum: Mediastinal contours appear normal. Heart size is normal. Bones and chest wall: No suspicious bony lesions. Overlying soft tissues appear unremarkable. IMPRESSION: No acute cardiopulmonary abnormality. Dictated by: Omer Finch M.D. on 04/03/2023 at 15:24 Approved by: Omer Finch M.D. on 04/03/2023 at 15:26
[2023-04-03 16:35] LABS: Add Manual Diff / Slide Review NO; Basophils Absolute Auto 0 /uL (0-100); Basophils Percent Auto 0.4 % (0-2); Eosinophils Absolute Auto 300 /uL (0-450); Eosinophils Percent Auto 5.1 % (2-4); Hematocrit 34.5 % (36-46); Lymphocytes Absolute Auto 2400 /uL (1100-4500); Lymphocytes Percent Auto 35.1 % (25-40); Mean Corpuscular HGB Conc 34.7 % (30-36); Mean Corpuscular Volume 86.6 fL (80-100); Monocytes Absolute Auto 500 /uL (0-900); Monocytes Percent Auto 7.8 % (3-14); Neutrophils Absolute Auto 3500 /uL (1500-7000); Neutrophils Percent Auto 51.6 % (50-75); Platelet Count 292 X10^3/uL (150-400); Red Blood Cell Count 3.98 X10^6/uL (4.0-5.2); Red Cell Distribution Width 12.6 % (11.6-14.8); White Blood Cell Count 6.8 X10^3/uL (4.5-11.0)
[2023-04-03 16:39] LABS: Prothrombin Time 10.9 SECONDS (10.1-12.7)
[2023-04-03 16:42] LABS: PTT Partial Thromboplastin Tim 28 SECONDS (26-36)
[2023-04-03 16:45] LABS: Alanine Aminotransferase 30 IU/L (<35); Albumin 4.6 g/dL (3.5-5.0); Albumin Globulin Ratio 1.7 (1.0-2.8); Alkaline Phosphatase 42 U/L (38-126); Aspartate Aminotransferase 36 IU/L (14-36); BUN Creatinine Ratio 25.6 (6-22); Bilirubin Total 0.4 mg/dL (0.2-1.3); Blood Urea Nitrogen 22 mg/dL (7-17); Calcium 9.5 mg/dL (8.4-10.2); Carbon Dioxide 30 mmol/L (22-32); Chloride 101 mmol/L (98-107); Creatine Kinase 160 U/L (30-135); Estimated Glomerular Filt Rate > 60 mL/min (>60); Globulin 2.7 g/dL (1.7-4.1); Glucose 82 mg/dL (80-110); HEMOLYSIS 18 (0-50); Lipase 120 U/L (23-300); Magnesium 2.2 mg/dL (1.6-2.3); Potassium 4.4 mmol/L (3.4-5.1); Sodium 139 mmol/L (137-145); Total Protein 7.3 g/dL (6.3-8.2)
[2023-04-03 16:55] LABS: Troponin I < 0.012 ng/mL (0.01-0.034)
--- NOTE | 2023-04-03 18:03 | ED_ITS ---
HPI - Arrhythmia/Palpitations <Jennifer Fritz PA-C - Last Filed: 04/03/23 18:18> General Chief Complaint: Arrhythmia/Palpitations Stated Complaint: heart racing/wont stop Time Seen by Provider: 04/03/23 17:48 Source: patient Mode of arrival: Ambulatory History of Present Illness HPI narrative: Patient is a 62-year-old female who presents with concern for palpitations. She currently has a Zio monitor from her primary care because of her history of palpitations, she has had it on an on for about 1 week and plans to have it on for 1 more week more. She reports palpitations for greater than 5 minutes today while waiting for her oil change. She did not have any chest pain or shortness of breath when this happened. Related Data Home Medications Medication Instructions Recorded Confirmed cholecalciferol (vitamin D3) PO 03/23/23 03/23/23 mv,iron,hnz-FJ-gzqhtui cmb.24 PO 03/23/23 03/23/23 tumeric 100 mg-reina 150 mg-olive cap PO 03/23/23 03/23/23 50 mg-oreg 150 mg-caprylate capsule Previous Rx's Medication Instructions Recorded cyclobenzaprine 5 mg tablet 5 mg PO BEDTIME PRN muscle spasm 11/10/22 #30 tabs bupropion HCl 300 mg 24 hr tablet, See Rx Instructions .Route 01/05/23 extended release .COMPLEX #90 tabs alprazolam 0.5 mg tablet 0.5 mg PO ONCE #2 tabs 02/17/23 Allergies Allergy/AdvReac Type Severity Reaction Status Date / Time No Known Drug Allergies Allergy Verified 04/03/23 14:58 Review of Systems <Jennifer Fritz PA-C - Last Filed: 04/03/23 18:18> Review of Systems ROS Unobtainable: All systems reviewed & are unremarkable except as noted in HPI and below Patient History <Jennifer Fritz PA-C - Last Filed: 04/03/23 18:18> Medical History Abnormal Pap smear of cervix (~1993) Acne Ankle pain (~2018) Chicken pox Closed left clavicular fracture Colon polyps Depression (~1986) Foot fracture (~2011) Human papilloma virus Lung nodule Measles Mumps Osteoarthritis of both hands Pelvic fracture Wears contact lenses Surgical History Anesthesia H/O tubal ligation Status post breast biopsy Status post breast biopsy Status post colonoscopy Status post dilation and curettage Status post hysteroscopy Status post sclerotherapy of varicose veins (~1998) Family History Father Cancer Diabetes mellitus Heart disease Hypertension High cholesterol Mother Age: 88 History of heart disease Mental health problem Lung cancer Sister Mental health problem Sister Heart disease Hyperlipidemia Mental health problem Sister Mental health problem Grandmother Cancer Hypertension Grandfather Stroke Grandmother Mental health problem Lung cancer Social History marital status: number of children: 3 household members: spouse lives independently: Yes occupational status: other Smoking Status: Never smoker alcohol intake: current substance use type: does not use Smoking Status: Never smoker alcohol intake frequency: a few times a week Substance Use Type: does not use Exam <Jennifer Fritz PA-C - Last Filed: 04/03/23 18:18> Narrative Exam Narrative: GENERAL: 62 year old patient appears stated age. Well-developed patient, in mild distress. NEURO: AOx3. CARDIOVASCULAR: Regular rate and rhythm without murmurs, gallops, or rubs. RESPIRATORY: Clear to auscultation. Breath sounds equal bilaterally. No wheezes, rales, or rhonchi. EXTREMITIES: No edema or joint tenderness. SKIN: No rash or erythema of visible areas Initial Vital Signs Initial Vital Signs: Vital Signs Temperature 98.2 F 04/03/23 14:54 Pulse Rate 82 04/03/23 14:54 Respiratory Rate 20 04/03/23 14:54 Blood Pressure 140/69 04/03/23 14:54 Pulse Oximetry 100 04/03/23 14:54 Oxygen Delivery Method Room Air 04/03/23 14:54 <Yvette Resendiz DO - Last Filed: 04/03/23 19:41> Initial Vital Signs Initial Vital Signs: Vital Signs Temperature 98.2 F 04/03/23 14:54 Pulse Rate 82 04/03/23 14:54 Respiratory Rate 20 04/03/23 14:54 Blood Pressure 140/69 04/03/23 14:54 Pulse Oximetry 100 04/03/23 14:54 Oxygen Delivery Method Room Air 04/03/23 14:54 Course <Jennifer Fritz PA-C - Last Filed: 04/03/23 18:18> Orders Ordered: ED Orders 04/03/23 15:00 EKG-12 Lead Stat 04/03/23 15:15 XR chest 1V Stat 04/03/23 16:15 Complete Blood Count AUTO DIFF Stat Comprehensive Metabolic Panel Stat Lipase Stat Magnesium Stat PTT Partial Thromboplastin Gabriele Stat Prothrombin Time INR Stat Troponin & CK Cardiac Panel Stat Vital Signs Vital signs: Vital Signs - 8 hr 04/03/23 14:54 04/03/23 18:14 Temperature 98.2 F Pulse Rate 82 72 Respiratory Rate 20 12 Blood Pressure 140/69 126/67 Pulse Oximetry 100 98 Oxygen Delivery Method Room Air Room Air <Yvette Resendiz DO - Last Filed: 04/03/23 19:41> Orders Ordered: ED Orders 04/03/23 15:00 EKG-12 Lead Stat 04/03/23 15:15 XR chest 1V Stat 04/03/23 16:15 Complete Blood Count AUTO DIFF Stat Comprehensive Metabolic Panel Stat Lipase Stat Magnesium Stat PTT Partial Thromboplastin Gabriele Stat Prothrombin Time INR Stat Troponin & CK Cardiac Panel Stat Vital Signs Vital signs: Vital Signs - 8 hr 04/03/23 14:54 04/03/23 18:14 Temperature 98.2 F Pulse Rate 82 72 Respiratory Rate 20 12 Blood Pressure 140/69 126/67 Pulse Oximetry 100 98 Oxygen Delivery Method Room Air Room Air MDM - Arrhythmia/Palpitations <Jennifer Fritz PA-C - Last Filed: 04/03/23 18:18> Lab Data 04/03/23 16:15 04/03/23 16:15 Labs: Lab Results 04/03/23 04/03/23 04/03/23 Range/Units 16:15 16:15 16:15 WBC 6.8 (4.5-11.0) X10^3/uL RBC 3.98 L (4.0-5.2) X10^6/uL Hgb 12.0 (12.0-16.0) g/dL Hct 34.5 L (36-46) % MCV 86.6 (80-100) fL MCH 30.0 (26-34) PG MCHC 34.7 (30-36) % RDW 12.6 (11.6-14.8) % Plt Count 292 (150-400) X10^3/uL Neut % (Auto) 51.6 (50-75) % Lymph % (Auto) 35.1 (25-40) % [place] % (Auto) 7.8 (3-14) % Eos % (Auto) 5.1 H (2-4) % Baso % (Auto) 0.4 (0-2) % Neut # (Auto) 3500 (7109-2578) /uL Lymph # (Auto) 2400 (3449-9058) /uL [place] # (Auto) 500 (0-900) /uL Eos # (Auto) 300 (0-450) /uL Baso # (Auto) 0 (0-100) /uL PT 10.9 (10.1-12.7) SECONDS INR 1.0 (0.9-1.3) APTT 28 (26-36) SECONDS Sodium 139 (137-145) mmol/L Potassium 4.4 (3.4-5.1) mmol/L Chloride 101 (98-107) mmol/L Carbon Dioxide 30 (22-32) mmol/L BUN 22 H (7-17) mg/dL Creatinine 0.86 (0.52-1.04) mg/dL Estimated GFR > 60 (>60) mL/min BUN/Creatinine Ratio 25.6 H (6-22) Glucose 82 (80-110) mg/dL Calcium 9.5 (8.4-10.2) mg/dL Magnesium 2.2 (1.6-2.3) mg/dL Total Bilirubin 0.4 (0.2-1.3) mg/dL AST 36 (14-36) IU/L ALT 30 (<35) IU/L Alkaline Phosphatase 42 (38-126) U/L Total Creatine Kinase 160 H (30-135) U/L Troponin I < 0.012 (0.01-0.034) ng/mL Total Protein 7.3 (6.3-8.2) g/dL Albumin 4.6 (3.5-5.0) g/dL Globulin 2.7 (1.7-4.1) g/dL Albumin/Globulin Ratio 1.7 (1.0-2.8) Lipase 120 (23-300) U/L MDM Narrative Medical decision making narrative: Multiple etiologies for patient's symptoms considered including, but not limited to: Palpitations, UT, anxiety, pericarditis. EKG, chest x-ray, labs, troponin all reassuring today. Patient has surveillance monitor on, will follow up with primary care and seek referral to Cardiology. Return to ER for chest pain or shortness of breath. Patient's symptoms improved over duration of stay with above-stated therapies. Findings and discharge diagnosis discussed with patient/family followed by verbalization of understanding Return precautions discussed with patient/family whom verbalize understanding of diagnosis and plan <Yvette Resendiz, DO - Last Filed: 04/03/23 19:41> Lab Data Labs: Lab Results 04/03/23 04/03/23 04/03/23 Range/Units 16:15 16:15 16:15 WBC 6.8 (4.5-11.0) X10^3/uL RBC 3.98 L (4.0-5.2) X10^6/uL Hgb 12.0 (12.0-16.0) g/dL Hct 34.5 L (36-46) % MCV 86.6 (80-100) fL MCH 30.0 (26-34) PG MCHC 34.7 (30-36) % RDW 12.6 (11.6-14.8) % Plt Count 292 (150-400) X10^3/uL Neut % (Auto) 51.6 (50-75) % Lymph % (Auto) 35.1 (25-40) % [place] % (Auto) 7.8 (3-14) % Eos % (Auto) 5.1 H (2-4) % Baso % (Auto) 0.4 (0-2) % Neut # (Auto) 3500 (5779-8734) /uL Lymph # (Auto) 2400 (6832-7007) /uL [place] # (Auto) 500 (0-900) /uL Eos # (Auto) 300 (0-450) /uL Baso # (Auto) 0 (0-100) /uL PT 10.9 (10.1-12.7) SECONDS INR 1.0 (0.9-1.3) APTT 28 (26-36) SECONDS Sodium 139 (137-145) mmol/L Potassium 4.4 (3.4-5.1) mmol/L Chloride 101 (98-107) mmol/L Carbon Dioxide 30 (22-32) mmol/L BUN 22 H (7-17) mg/dL Creatinine 0.86 (0.52-1.04) mg/dL Estimated GFR > 60 (>60) mL/min BUN/Creatinine Ratio 25.6 H (6-22) Glucose 82 (80-110) mg/dL Calcium 9.5 (8.4-10.2) mg/dL Magnesium 2.2 (1.6-2.3) mg/dL Total Bilirubin 0.4 (0.2-1.3) mg/dL AST 36 (14-36) IU/L ALT 30 (<35) IU/L Alkaline Phosphatase 42 (38-126) U/L Total Creatine Kinase 160 H (30-135) U/L Troponin I < 0.012 (0.01-0.034) ng/mL Total Protein 7.3 (6.3-8.2) g/dL Albumin 4.6 (3.5-5.0) g/dL Globulin 2.7 (1.7-4.1) g/dL Albumin/Globulin Ratio 1.7 (1.0-2.8) Lipase 120 (23-300) U/L ECG Data Attestation: I personally reviewed and interpreted this ECG as follows: Interpretation: Sinus rhythm rate of 72 LA 160 QRS 88 QTC [address] No acute ST elevation depression noted. Patient has prior from 12/17/[address]. Discharge Plan Departure Patient Disposition: Home Clinical Impression: Heart palpitations Instructions: DI for Palpitations Activity Restrictions/Additional Instructions: *You have been diagnosed with likely palpitations. We did not see anything on your labs, EKG, or chest x-ray today that is concerning for heart disease, or arrhythmia. I would recommend that you make an appointment to follow up with your primary care to review the results of your cardiac test, start taking a baby aspirin (81mg) daily to prevent heart attack, and request referral to Cardiology for evaluation and echocardiogram. Please return to the emergency room if you develop chest pain or shortness of breath with your palpitations. *What to do: *Please continue to take your regular medications as directed. [ ] New medication prescriptions sent to your pharmacy: [ ] [ ] New medication written as a paper prescription [x ] No new medications given *Please follow up with your primary care provider in 2-3 days, call for an appointment. Let them know you were seen in the Emergency Department and that we ask that you be seen in follow up. We will electronically transmit a record of today's note if your PCP is in our system *If you do not have a primary care provider please contact the [facility] Resource line at [phone]. They will ask some questions about your medical history and help get you set up with a doctor in the community. *Return to Emergency Department if you should have any new, worsening or concerning symptoms, such as [fever greater than 101 F, shaking chills, worsening pain, persistent vomiting or other bothersome symptoms] Prescriptions: No Action cyclobenzaprine 5 mg tablet 5 mg PO BEDTIME PRN (Reason: muscle spasm) Qty: 30 0RF alprazolam 0.5 mg tablet 0.5 mg PO ONCE Qty: 2 0RF Rx Instructions: Take one tablet one hour prior to procedure. May repeat once if needed cholecalciferol (vitamin D3) PO mv,iron,krr-CF-xdlbuig cmb.24 PO oozlvwv-wewb-dlcjx-oreg-capryl 100 mg-150 mg- 50 mg-150 mg capsule PO bupropion HCl 300 mg tablet extended release 24 hr See Rx Instructions .ROUTE .COMPLEX Qty: 90 2RF Dose Instruction: take 1 tablet by mouth once daily Rx Instructions: take 1 tablet by mouth once daily Referrals: Sandra Loja DO [Primary Care Provider] - Stand Alone Forms: Patient Portal/API <Yvette Resendiz DO - Last Filed: 04/03/23 19:41> Cosign ED Attending Srinivasaature Attestation: I was immediately available in the department for consultation. Documentation has been reviewed.
[2023-04-03 18:14] VITALS: BP 126/67; PULSE 72; RESP 12; O2SAT 98
== END 2023-04-03 18:17 | disposition home or self-care (01) ==
PROVIDERS: Emergency Medicine; Emergency Provider Physician Assistant; PCP Family Medicine
DX: R00.2 Palpitations (principal)
CPT/HCPCS: 36415; 71045; 80053; 82550; 83690; 83735; 84484; 85025; 85610; 85730; 93005; 93010; 99284

== ENCOUNTER → 2023-04-21 | Outpatient (CLI) | payer OTHER, SELFPAY ==
--- NOTE | 2023-04-22 10:21 | DI.NM.S_ITS ---
DATE OF SERVICE: 04/21/2023 PROCEDURE: Exercise treadmill stress test without imaging. ORDERING PROVIDER: Guy Delvalle Jr, MD INDICATIONS: The patient is a 62-year-old female with a history of rapid palpitations. FINDINGS: 1. The patient was able to exercise for 4 minutes and 43 seconds on a standard Baldomero protocol but this was a submaximal test due to stoppage because of rapid SVT with heart rate up to 188 BPM. 2. Her resting ECG showed normal sinus rhythm at 78 BPM with a normal-appearing P wave and normal ST segments. She had a normal gradual increase in heart rate until 3 minutes and 11 seconds of exercise, when she had an abrupt increase from 120 to 180 BPM with a regular narrow-complex tachycardia with a small, abnormal-appearing preceding P wave of different morphology than her baseline. She maintained a normal blood pressure with this and developed 1-2 mm of flat upsloping ST depression with her tachycardia. Her heart rate slowly decreased in early recovery, but remained elevated at around 130 to 140 BPM despite Valsalva maneuver. She was given adenosine 6 mg with transient slowing, but prompt resumption of tachycardia that persisted at around 120-140 BPM until she was given 2 doses of intravenous metoprolol with a slow decrement in heart rate until abruptly converting to sinus rhythm at 77 BPM. She had brief transient resumption of SVT with spontaneous conversion back to sinus rhythm. 3. She had no chest pain or other anginal symptoms with her SVT, although was aware of palpitations. IMPRESSION: 1. Equivocal treadmill stress test for ischemia with modest, nonspecific ST depression with her SVT, likely due to a rate-related phenomenon, although ischemia cannot be excluded. 2. Provocation of SVT up to 188 bpm at modest work loads with an abnormal preceding P wave and a slight decline in heart rate with metoprolol before abrupt conversion to sinus rhythm, suggesting a reentrant mechanism of SVT. 3. She had no chest discomfort other anginal symptoms with stress or her SVT, and her blood pressure remained within normal limits. BrandyJacqui - EDGARDO/romulo/ALLY doc#: [id number]/job#: [id number] dd: 04/21/2023 16:49:00 dt: 04/21/2023 21:42:00 DICTATING MD/COPIES TO: Manohar Barbosa MD; Guy Delvalle Jr MD COPIES MNE: WALKER;
== END ==
LOC: RAD 15:13
PROVIDERS: PCP Family Medicine; Referring Provider Internal Medicine Cardiovascular Disease; Visit Provider Internal Medicine Cardiovascular Disease
DX: I47.1 Supraventricular tachycardia (principal)
CPT/HCPCS: 93017

== ENCOUNTER → 2023-04-29 09:22 | Outpatient (CLI) | payer OTHER, SELFPAY ==
--- NOTE | 2023-04-29 | DI.ECHO.S_ITS ---
[facility]---------+ [facility] +---------+ : : [address] [place] : : : : [id number] : : : : Phone: [phone] Echocardiogram Report + + :Name: SHERON SARGENT Study Date: 04/29/2023 Height: 69 in : :[facility] ReadingLocation: Weight: 143 lb : : Gender: Female BSA: 1.8 m2 : :: 1960 Age: 62 yrs BP: 114/78 mmHg: :Reason For Study: TACHYCARDIA : :Ordering Physician: DEAN, : :GUY Performed By: Debo Lunsford : :Referring: GUY DELVALLE : + + Interpretation Summary The left ventricle is normal in size and wall thickness. Left ventricular systolic function appears normal without focal wall motion abnormalities. The ejection fraction is estimated to be 60-65%. Diastolic parameters suggest probable normal left ventricular diastolic function and normal filling pressures. The right ventricle is normal in size and function. The right ventricular systolic pressure is estimated to be at least 21 mmHg based on an estimated right atrial pressure of 3 mm Hg. Borderline left atrial enlargement. The aortic root is normal size. Procedure: A two-dimensional transthoracic echocardiogram with color flow and Doppler was performed. The study quality was technically adequate. There is no prior echocardiogram noted for this patient. The patient was in sinus rhythm with heart rates between 61-82 bpm during the exam. Left Ventricle: The left ventricle is normal in size and wall thickness. Left ventricular systolic function appears normal without focal wall motion abnormalities. The ejection fraction is estimated to be 60-65%. Diastolic parameters suggest probable normal left ventricular diastolic function and normal filling pressures. Right Ventricle: The right ventricle is normal in size and function. Atria: Borderline left atrial enlargement. Right atrial size is normal. There is no Doppler evidence for an interatrial shunt. Mitral Valve: There is a flat closure plane of the the mitral valve leaflets. There is mild mitral regurgitation. Aortic Valve: The aortic valve is trileaflet. The aortic valve opens well. There is no aortic valve stenosis. No aortic regurgitation is present. Tricuspid Valve: The tricuspid valve is normal in structure and function. There is mild tricuspid regurgitation. The right ventricular systolic pressure is estimated to be at least 21 mmHg based on an estimated right atrial pressure of 3 mm Hg. Pulmonic Valve: The pulmonic valve leaflets are thin and pliable; valve motion is normal. There is no pulmonic valvular regurgitation. Great Vessels: The aortic root is normal size. The dimensions of the ascending aorta are normal. The IVC is of normal diameter and collapses greater than 50% with a sniff. This suggests a low right atrial pressure of 3 mm Hg. Pericardium/ Pleura There is no pericardial effusion. There is no pleural effusion. MMode/2D Measurements & Calculations LVIDd: 5.0 cm LVOT diam: 2.0 cm LVIDs: 3.2 cm Ao root diam: 3.1 cm FS: 36.4 % asc Aorta Diam: 2.9 cm EPSS: 0.76 cm Ao Arch Diam (Prox Trans): 2.8 cm IVSd: 0.59 cm LVPWd: 0.68 cm LV delacruz. diameter/BSA (cm/m^2): 2.8 LV sys. diameter/BSA (cm/m^2): 1.8 LA A2 area: 19.5 cm2 RA long axis: 4.7 cm LA A4 area: 15.5 cm2 RA area: 13.5 cm2 LA length (vol): 4.6 cm RA vol: 32.8 ml LA vol: 55.9 ml RA : 18.3 ml/m2 LA vol index: 31.2 ml/m2 IVC diam: 1.5 cm RVD1 (basal): 3.4 cm TAPSE: 2.4 cm Doppler Measurements & Calculations Ao V2 max: 119.0 cm/sec LVOT Max Herrera: 79.9 cm/sec Ao V2 mean: 90.6 cm/sec LV V1 max P.6 mmHg Ao max P.7 mmHg LV V1 VTI: 16.4 cm Ao mean P.5 mmHg ZULEIKA(I,D): 2.0 cm2 Ao V2 VTI: 26.2 cm ZULEIKA(V,D): 2.1 cm2 sev ratio: 0.63 ZULEIKA indexed to BSA (cm^2/m^2): 1.1 MV E max herrera: 56.5 cm/sec TR max herrera: 210.9 cm/sec MV A max herrera: 51.1 cm/sec TR max P.8 mmHg MV E/A: 1.1 PA V2 max: 73.4 cm/sec Med Peak E' Herrera: 7.6 cm/sec PA V2 mean: 53.4 cm/sec E/E' med: 7.4 PA mean P.2 mmHg Lat Peak E' Herrera: 10.3 cm/sec PA pr(Accel): 36.2 mmHg E/E' lat: 5.5 E/e' average: 6.5 MV dec time: 0.14 sec SV(LVOT): 52.5 ml Reading Physician:06:19 PM
== END ==
PROVIDERS: PCP Family Medicine; Referring Provider Internal Medicine Cardiovascular Disease; Visit Provider Internal Medicine Cardiovascular Disease
DX: I08.1 Rheumatic disorders of both mitral and tricuspid valves (principal); I47.1 Supraventricular tachycardia
CPT/HCPCS: 93306

== ENCOUNTER → 2023-05-20 09:40 | Outpatient (CLI) | payer OTHER, SELFPAY ==
--- NOTE | 2023-05-20 09:43 | DI.CT.S_ITS ---
PROCEDURE: CT CERVICAL SPINE WO CON INDICATIONS: Neck pain; weakness Left hand; pain Left distal humerus TECHNIQUE: Noncontrast 3 mm thick sections acquired from the skull base to the T4 level. Sagittal and coronal reformats were then constructed. For radiation dose reduction, the following was used: automated exposure control, adjustment of mA and/or kV according to patient size. COMPARISON: [facility], CT, CT CERVICAL SPINE WITHOUT CONTRAST, 03/14/2020, 11:41. [facility], MR, MR CERVICAL SPINE WO CON, 03/06/2023, 7:29. FINDINGS: Image quality: Excellent. Bones: No fractures or dislocations. Visualized superior ribs are intact. There is reversal the normal cervical lordosis present. Grade 1 anterior spondylolisthesis at C3-4. Disc space narrowing and left-sided arthropathy present at C4-5 and C5-6, associated with mild to moderate central stenosis Soft tissues: Prevertebral soft tissues are normal in thickness. No paravertebral hematomas. No apical pneumothoraces. Incidental note is made of a right paratracheal air cyst measuring 1.6 x 0.7 cm at the thoracic outlet level, an incidental benign finding, unchanged from the prior CT. IMPRESSION: Degenerative disc disease and arthropathy in the cervical spine results in xdcn-nd-stxlrsed central stenosis C4-5 and C5-6, similar to prior exams. Reversal normal cervical lordosis may related to positioning Approved by: Roby Faye M.D. on 05/20/2023 at 13:02
--- NOTE | 2023-05-20 09:43 | DI.RAD.S_ITS ---
PROCEDURE: XR CERVICAL SPINE 4V OR 5V INDICATIONS: Neck pain; weakness L hand; pain L distal humerus TECHNIQUE: 5 views of the cervical spine acquired. COMPARISON: [facility], , XR CERVICAL SPINE 2V OR 3V, 11/10/2022, 15:31. FINDINGS: Bones: No fractures or dislocations to the C7 level. Oblique images demonstrate no bony foraminal stenoses. Reversal of the normal cervical lordosis. Moderate disc height loss at C5-6, C6-7. Mild disc height loss at remaining levels. Mild, multilevel facet arthrosis, most prominent at C4-5, C5-6. Soft tissues: No prevertebral soft tissue swelling. IMPRESSION: Multilevel degenerative disc disease and facet arthrosis, most prominent at C5-6 and C6-7. Dictated by: Abraham Pedraza M.D. on 05/20/2023 at 10:42 Approved by: Abraham Pedraza M.D. on 05/20/2023 at 10:44
== END ==
PROVIDERS: PCP Family Medicine; Referring Provider Physician Assistant; Visit Provider Physician Assistant
DX: M50.122 Cervical disc disorder at C5-C6 level with radiculopathy (principal); M47.22 Other spondylosis with radiculopathy, cervical region
CPT/HCPCS: 72050; 72125

== ENCOUNTER → 2023-06-08 11:05 | Outpatient (CLI) | payer OTHER, SELFPAY ==
[2023-06-08 12:08] LABS: Hematocrit 33.7 % (36-46); Hemoglobin 11.9 g/dL (12.0-16.0)
[2023-06-08 12:29] LABS: HEMOLYSIS < 15 (0-50); Iron 116 ug/dL (37-170)
[2023-06-08 12:40] LABS: Percent Iron Saturation 38 % (15-50); Total Iron Binding Capacity 303 ug/dL (265-497); Transferrin 208 mg/dL (206-381)
[2023-06-08 13:04] LABS: Ferritin 45 ng/mL (11-264)
== END ==
PROVIDERS: PCP Family Medicine; Referring Provider Physician Assistant; Visit Provider Physician Assistant
DX: D64.9 Anemia, unspecified (principal)
CPT/HCPCS: 36415; 82728; 83540; 83550; 85014; 85018

== ENCOUNTER 2023-08-19 10:39 | Emergency (ER) | payer OTHER, SELFPAY ==
[2023-08-19] VITALS (10 sets, daily range): BP systolic 111–145; BP diastolic 65–78; PULSE 77–95; RESP 9–25; TEMP 36.6; O2SAT 97–100; BMI 21.1
--- NOTE | 2023-08-19 10:57 | DI.RAD.S_ITS ---
PROCEDURE: XR CHEST 1V INDICATIONS: chest pain TECHNIQUE: One view of the chest was acquired. COMPARISON: [facility], CR, XR CHEST 1V, 04/03/2023, 15:18. FINDINGS: Surgical changes and devices: None. Lungs and pleura: Lungs are clear. No pleural effusions or pneumothorax. Mediastinum: Mediastinal contours appear normal. Heart size is normal. Bones and chest wall: No suspicious bony lesions. Overlying soft tissues appear unremarkable. IMPRESSION: No acute cardiopulmonary abnormality is seen. Dictated by: Chad Franco M.D. on 08/19/2023 at 11:25 Approved by: Chad Franco M.D. on 08/19/2023 at 11:26
--- NOTE | 2023-08-19 10:59 | PC.NURSE ---
Pt received an ablation 08/11 for chronic SVT. Reports procedure went well initially. states that today shes been more tired, HR increased to 140's with exertion like walking up stairs. Having some dizziness. BP remains normal 130-140's. HR at this time 80's NSR. Denies CP or SOB.
[2023-08-19 11:06] LABS: Add Manual Diff / Slide Review NO; Basophils Absolute Auto 0 /uL (0-100); Basophils Percent Auto 0.8 % (0-2); Eosinophils Absolute Auto 100 /uL (0-450); Eosinophils Percent Auto 1.7 % (2-4); Hematocrit 35.3 % (36-46); Hemoglobin 12.2 g/dL (12.0-16.0); Lymphocytes Absolute Auto 2100 /uL (1100-4500); Lymphocytes Percent Auto 35.3 % (25-40); Mean Corpuscular HGB Conc 34.6 % (30-36); Mean Corpuscular Hemoglobin 30.3 PG (26-34); Mean Corpuscular Volume 87.5 fL (80-100); Monocytes Absolute Auto 500 /uL (0-900); Monocytes Percent Auto 7.9 % (3-14); Neutrophils Absolute Auto 3200 /uL (1500-7000); Neutrophils Percent Auto 54.3 % (50-75); Platelet Count 303 X10^3/uL (150-400); Red Blood Cell Count 4.03 X10^6/uL (4.0-5.2); Red Cell Distribution Width 12.5 % (11.6-14.8); White Blood Cell Count 5.9 X10^3/uL (4.5-11.0)
[2023-08-19 11:07] LABS: INR 1.3 (0.9-1.3); Prothrombin Time 14.4 SECONDS (9.4-12.5)
[2023-08-19 11:10] LABS: PTT Partial Thromboplastin Tim 25 SECONDS (25.1-36.5)
[2023-08-19 11:14] LABS: Alanine Aminotransferase 22 IU/L (<35); Albumin 4.6 g/dL (3.5-5.0); Albumin Globulin Ratio 1.6 (1.0-2.8); Alkaline Phosphatase 48 U/L (38-126); Aspartate Aminotransferase 28 IU/L (14-36); BUN Creatinine Ratio 22.1 (6-22); Bilirubin Total 0.6 mg/dL (0.2-1.3); Blood Urea Nitrogen 19 mg/dL (7-17); Calcium 9.5 mg/dL (8.4-10.2); Carbon Dioxide 26 mmol/L (22-32); Chloride 101 mmol/L (98-107); Creatine Kinase 79 U/L (30-135); Estimated Glomerular Filt Rate > 60 mL/min (>60); Globulin 2.9 g/dL (1.7-4.1); Glucose 80 mg/dL (80-110); HEMOLYSIS < 15 (0-50); Lipase 133 U/L (23-300); Magnesium 1.9 mg/dL (1.6-2.3); Potassium 3.6 mmol/L (3.4-5.1); Sodium 139 mmol/L (137-145); Total Protein 7.5 g/dL (6.3-8.2)
[2023-08-19 11:24] LABS: Troponin I < 0.012 ng/mL (0.01-0.034)
--- NOTE | 2023-08-19 12:15 | ED_ITS ---
HPI - Arrhythmia/Palpitations General Chief Complaint: Dizziness Stated Complaint: dizziness Time Seen by Provider: 08/19/23 12:07 History of Present Illness HPI narrative: Patient 62-year-old female history of SVT with recent ablation on July he thought [facility] presents today with palpitations elevated heart rate and some lightheadedness. She reports she had the ablation for SVT found some a flutter. They went into her right groin. Today she is noticed that at rest and with exertion her heart rate on her Apple watch does go up to 130. She is currently in sinus rhythm on the monitor heart rate of 95 blood pressure 128/65. She also reports that she feels a small lump in her right inguinal region where the ablation took place. She notes that 2 days ago. No significant pain or erythema. He has not passed out. No chest pain. She is message her physician through her phone they have already set up Holter monitor for her. They requested EKG be faxed to them which we have done. Related Data Home Medications Medication Instructions Recorded Confirmed mv,iron,[id number] cmb.24 PO 03/23/23 06/01/23 metoprolol tartrate 25 mg tablet 25 mg PO DAILY 06/01/23 06/01/23 Previous Rx's Medication Instructions Recorded bupropion HCl 300 mg 24 hr tablet, See Rx Instructions .Route 01/05/23 extended release .COMPLEX #90 tabs Allergies Allergy/AdvReac Type Severity Reaction Status Date / Time No Known Drug Allergies Allergy Verified 06/01/23 10:59 Patient History Medical History Colon polyps Lung nodule Closed left clavicular fracture Pelvic fracture Wears contact lenses Acne Depression (~1986) Foot fracture (~2011) Ankle pain (~2018) Mumps Measles Chicken pox Human papilloma virus Abnormal Pap smear of cervix (~1993) Osteoarthritis of both hands Surgical History H/O tubal ligation Anesthesia Status post colonoscopy Status post hysteroscopy Status post dilation and curettage Status post sclerotherapy of varicose veins (~1998) Status post breast biopsy Status post breast biopsy Family History Father Cancer Diabetes mellitus Heart disease Hypertension High cholesterol Mother Age: 88 History of heart disease Mental health problem Lung cancer Sister Mental health problem Sister Heart disease Hyperlipidemia Mental health problem Sister Mental health problem Grandmother Cancer Hypertension Grandfather Stroke Grandmother Mental health problem Lung cancer Social History marital status: number of children: 3 household members: spouse lives independently: Yes occupational status: other Smoking Status: Never smoker alcohol intake: current (1 drink weekly ) substance use type: does not use Smoking Status: Never smoker alcohol intake frequency: a few times a week Substance Use Type: does not use Exam Initial Vital Signs Initial Vital Signs: Vital Signs Temperature 97.8 F 08/19/23 10:42 Pulse Rate 95 H 08/19/23 10:42 Respiratory Rate 16 08/19/23 10:42 Blood Pressure 128/65 08/19/23 10:42 Pulse Oximetry 100 08/19/23 10:42 Oxygen Delivery Method Room Air 08/19/23 10:42 GENERAL: Alert pleasant 62-year-old female and in no acute distress. HEENT: Head atraumatic,EOMI, pupils reactive, face symmetric, moist mucous membranes CARDIOVASCULAR: Regular rate and rhythm without murmurs, rubs or gallops. RESPIRATORY: Breath sounds equal bilaterally, no wheezes rales or rhonchi. ABDOMEN: Soft, nontender. Normoactive bowel sounds all 4 quadrants. No guarding or rebound. EXTREMITIES: Normal range of motion, no clubbing or edema. Neurovascularly intact NEUROLOGICAL: Alert and oriented x4.Normal gait and speech. SKIN: Warm, dry, no laceration, no petechiae, no rashes or lesions. Right inguinal area palpable lump pulsatile non erythematous Course Orders Ordered: ED Orders 08/19/23 10:57 XR chest 1V Stat EKG-12 Lead Stat 08/19/23 11:00 Complete Blood Count AUTO DIFF Stat Comprehensive Metabolic Panel Stat Lipase Stat Magnesium Stat PTT Partial Thromboplastin Gabriele Stat Prothrombin Time INR Stat Troponin & CK Cardiac Panel Stat 08/19/23 12:17 CT chest w con Stat US abdomen limited Stat Vital Signs Vital signs: Vital Signs - 8 hr 08/19/23 12:00 08/19/23 12:00 08/19/23 12:30 Pulse Rate 82 79 Respiratory Rate 18 9 L Blood Pressure 112/78 Pulse Oximetry 97 99 08/19/23 13:00 08/19/23 13:27 08/19/23 13:27 Pulse Rate 81 82 Respiratory Rate 10 L 22 Blood Pressure 111/69 Pulse Oximetry 99 99 08/19/23 13:30 08/19/23 13:30 Pulse Rate 79 Respiratory Rate 14 Blood Pressure 124/73 Pulse Oximetry 98 MDM - Arrhythmia/Palpitations Lab Data 08/19/23 11:00 08/19/23 11:00 Labs: Lab Results 08/19/23 Range/Units 11:00 WBC 5.9 (4.5-11.0) X10^3/uL RBC 4.03 (4.0-5.2) X10^6/uL Hgb 12.2 (12.0-16.0) g/dL Hct 35.3 L (36-46) % MCV 87.5 (80-100) fL MCH 30.3 (26-34) PG MCHC 34.6 (30-36) % RDW 12.5 (11.6-14.8) % Plt Count 303 (150-400) X10^3/uL Neut % (Auto) 54.3 (50-75) % Lymph % (Auto) 35.3 (25-40) % Jay % (Auto) 7.9 (3-14) % Eos % (Auto) 1.7 L (2-4) % Baso % (Auto) 0.8 (0-2) % Neut # (Auto) 3200 (1060-8029) /uL Lymph # (Auto) 2100 (3694-4445) /uL Jay # (Auto) 500 (0-900) /uL Eos # (Auto) 100 (0-450) /uL Baso # (Auto) 0 (0-100) /uL PT 14.4 H (9.4-12.5) SECONDS INR 1.3 (0.9-1.3) APTT 25 L (25.1-36.5) SECONDS Sodium 139 (137-145) mmol/L Potassium 3.6 (3.4-5.1) mmol/L Chloride 101 (98-107) mmol/L Carbon Dioxide 26 (22-32) mmol/L BUN 19 H (7-17) mg/dL Creatinine 0.86 (0.52-1.04) mg/dL Estimated GFR > 60 (>60) mL/min BUN/Creatinine Ratio 22.1 H (6-22) Glucose 80 (80-110) mg/dL Calcium 9.5 (8.4-10.2) mg/dL Magnesium 1.9 (1.6-2.3) mg/dL Total Bilirubin 0.6 (0.2-1.3) mg/dL AST 28 (14-36) IU/L ALT 22 (<35) IU/L Alkaline Phosphatase 48 (38-126) U/L Total Creatine Kinase 79 (30-135) U/L Troponin I < 0.012 (0.01-0.034) ng/mL Total Protein 7.5 (6.3-8.2) g/dL Albumin 4.6 (3.5-5.0) g/dL Globulin 2.9 (1.7-4.1) g/dL Albumin/Globulin Ratio 1.6 (1.0-2.8) Lipase 133 (23-300) U/L Imaging Data Chest x-ray: Radiologist's Impresson: PROCEDURE: XR CHEST 1V INDICATIONS: chest pain TECHNIQUE: One view of the chest was acquired. COMPARISON: [facility], , XR CHEST 1V, 04/03/2023, 15:18. FINDINGS: Surgical changes and devices: None. Lungs and pleura: Lungs are clear. No pleural effusions or pneumothorax. Mediastinum: Mediastinal contours appear normal. Heart size is normal. Bones and chest wall: No suspicious bony lesions. Overlying soft tissues appear unremarkable. IMPRESSION: No acute cardiopulmonary abnormality is seen. Dictated by: Chad Franco M.D. on 08/19/2023 at 11:25 Approved by: Chad Franco M.D. on 08/19/2023 at 11:26 CT scan - chest: Radiologist's Impresson: ADDENDUMThis report includes an Addendum and supersedes previous reports for this exam. PROCEDURE: CT CHEST W CON INDICATIONS: post ablation with chest pain TECHNIQUE: After the administration of intravenous contrast, 5 mm thick sections acquired from the pulmonary apices to the posterior costophrenic angles. 1 mm axial lung, 5 mm thick coronal and sagittal reformats and 7 mm axial MIP were acquired. For radiation dose reduction, the following was used: automated exposure control, adjustment of mA and/or kV according to patient size. COMPARISON: [facility], CT, CT CHEST WO CON, 11/01/2021, 10:21. [facility], CR, XR CHEST 1V, 08/19/2023, 10:51. FINDINGS: Image quality: Diagnostic. Lower Neck: No enlarged lymph nodes. Thyroid: No thyroid nodules which require sonographic follow up, per consensus guidelines. Axillae: No enlarged lymph nodes. Chest Wall: Unremarkable. Bones: Unremarkable. Lungs and Pleura: Multiple lung nodules are present, unchanged in size. -6 mm; posterior left upper lobe; series 3, image 76. -3 mm; left major fissure; series 3, image 162. -3 mm; right major fissure; series 3, image 175. -4 mm; endobronchial right middle lobe; series 3, image 173. No pneumothorax or pleural effusions. No consolidation. Heart: Heart size is normal. No pericardial effusion. Thoracic Vessels: The aorta and pulmonary arteries demonstrate normal size. Mediastinum and Belkis: No enlarged lymph nodes. Esophagus: No wall thickening. No hiatal hernia. Upper Abdomen: There are multiple simple appearing renal cysts bilaterally. The largest cyst is in the superior pole of the left kidney measuring 7.1 cm. Visualized upper abdomen solid organs and bowel loops appear normal. IMPRESSION: 1. No acute cardiopulmonary process. 2. Multiple pulmonary nodules are present bilaterally, unchanged since 11/01/2021. Please see enclosed follow-up recommendation. 3. The exam was not done using pulmonary angiogram protocol. No definitive pulmonary emboli although small pulmonary emboli cannot be excluded. If there is clinical suspicion for pulmonary embolism, consider CT pulmonary angiogram or V/Q scan. Dictated by: Bar Srinivasan M.D. on 08/19/2023 at 13:15 Approved by: Bar Srinivasan M.D. on 08/19/2023 at 13:22 US ab: Radiologist's Impresson: PROCEDURE: US ABDOMEN LIMITED INDICATIONS: POSTABLATION RIGHT GROIN LUMP - please evaluate for PSEUDOANEURYSM TECHNIQUE: Real-time focused scanning was performed of the abdomen, with image documentation. COMPARISON: [facility], CT, CT CHEST W CON, 08/19/2023, 12:24. [facility], CR, XR CHEST 1V, 08/19/2023, 10:51. FINDINGS: Scanning is performed at the area of palpable abnormality within the right groin. There is a prominent lymph node seen that measures 3.6 x 0.8 x 0.6 cm. No pseudoaneurysm can be seen. No soft tissue hematomas can be seen. The regional arteries and veins demonstrate a normal, patent appearance. IMPRESSION: Negative for pseudoaneurysm. There is a prominent right groin lymph node noted. Dictated by: Alessandro Skelton M.D. on 08/19/2023 at 12:17 ECG Data Interpretation: Normal sinus rhythm rate 81 AZ interval 144 QRS [address] changes no T- wave inversions MDM Narrative Medical decision making narrative: Patient is a 62-year-old female history of SVT with recent ablation. She presents with palpitations and some lightheadedness. She is in sinus rhythm here on the monitor. Vitals are stable. Blood work has been reviewed no significant abnormalities. Imaging reviewed chest x-ray CT chest and ultrasound. She has no evidence of pericardial effusion or complication from the ablation. Right groin there is small lump not pulsatile. Ultrasound ruled pseudoaneurysm. It is actually a lymph node. Patient already has follow-up with a emergency department technician at she is being set up with a Holter monitor. Discharge Plan Departure Patient Disposition: Home Clinical Impression: Heart palpitations Instructions: DI for Arrhythmias Activity Restrictions/Additional Instructions: *You have been diagnosed with palpitations *What to do: At this time follow up with your emergency department technician. Your CT scan today did not show any pericardial effusion you do not have any pseudoaneurysm. You will need a Holter monitor. *Continue to take medications as directed *Follow up with your primary care provider in 2-3 days or call [phone] *Return to ER if you should have increasing chest pain dizziness lightheadedness or any new, worsening or concerning symptoms Prescriptions: No Action mv,iron,nui-TE-[id number] cmb.24 PO bupropion HCl 300 mg tablet extended release 24 hr See Rx Instructions .ROUTE .COMPLEX Qty: 90 2RF Dose Instruction: take 1 tablet by mouth once daily Rx Instructions: take 1 tablet by mouth once daily metoprolol tartrate 25 mg tablet 25 mg PO DAILY Referrals: Suzanne Marcos DO [Primary Care Provider] - Stand Alone Forms: Patient Portal/API
== END 2023-08-19 13:55 | disposition home or self-care (01) ==
PROVIDERS: Emergency Provider Emergency Medicine; PCP Family Medicine
DX: R00.2 Palpitations (principal); R07.9 Chest pain, unspecified
CPT/HCPCS: 36415; 71045; 71260; 76705; 80053; 82550; 83690; 83735; 84484; 85025; 85610; 85730; 93005; 99284; Q9967

== ENCOUNTER → 2024-04-11 07:59 | Outpatient (CLI) | payer OTHER, SELFPAY ==
[2024-04-11 08:59] LABS: Add Manual Diff / Slide Review NO; Basophils Absolute Auto 0 /uL (0-100); Basophils Percent Auto 0.8 % (0-2); Eosinophils Absolute Auto 200 /uL (0-450); Eosinophils Percent Auto 3.6 % (2-4); Hematocrit 34.9 % (36-46); Hemoglobin 12.1 g/dL (12.0-16.0); Lymphocytes Absolute Auto 2000 /uL (1100-4500); Lymphocytes Percent Auto 37.1 % (25-40); Mean Corpuscular HGB Conc 34.8 % (30-36); Mean Corpuscular Hemoglobin 29.7 PG (26-34); Mean Corpuscular Volume 85.4 fL (80-100); Monocytes Absolute Auto 400 /uL (0-900); Monocytes Percent Auto 7.8 % (3-14); Neutrophils Absolute Auto 2700 /uL (1500-7000); Neutrophils Percent Auto 50.7 % (50-75); Platelet Count 316 X10^3/uL (150-400); Red Blood Cell Count 4.09 X10^6/uL (4.0-5.2); Red Cell Distribution Width 12.6 % (11.6-14.8); White Blood Cell Count 5.3 X10^3/uL (4.5-11.0)
[2024-04-11 09:38] LABS: HEMOLYSIS < 15 (0-50); Iron 118 ug/dL (37-170)
[2024-04-11 09:40] LABS: BUN Creatinine Ratio 24.7 (6-22); Blood Urea Nitrogen 19 mg/dL (7-17); Calcium 9.3 mg/dL (8.4-10.2); Carbon Dioxide 30 mmol/L (22-32); Chloride 103 mmol/L (98-107); Estimated Glomerular Filt Rate > 60 mL/min (>60); Glucose 82 mg/dL (80-110); HEMOLYSIS < 15 (0-50); Potassium 4.7 mmol/L (3.4-5.1); Sodium 136 mmol/L (137-145)
[2024-04-11 09:51] LABS: Percent Iron Saturation 42 % (15-50); Total Iron Binding Capacity 279 ug/dL (265-497); Transferrin 224 mg/dL (206-381)
[2024-04-11 09:57] LABS: Free T3, Triiodothyronine Free 2.95 pg/mL (2.77-5.27); Free T4, Direct Thyroxine 0.89 ng/dL (0.78-2.19)
[2024-04-11 10:10] LABS: TSH w/ Reflex to FT4 2.13 uIU/mL (0.47-4.68)
[2024-04-11 10:14] LABS: Ferritin 30 ng/mL (11-264)
== END ==
PROVIDERS: PCP Family Medicine; Referring Provider Family Medicine; Visit Provider Family Medicine
DX: I49.9 Cardiac arrhythmia, unspecified (principal); D64.9 Anemia, unspecified; R53.83 Other fatigue; I47.10 Supraventricular tachycardia, unspecified
CPT/HCPCS: 36415; 80048; 82728; 83540; 83550; 84439; 84443; 84481; 85025

== ENCOUNTER → 2024-04-18 15:00 | Outpatient (CLI) | payer OTHER, SELFPAY | LOC: CAR 15:00 | PROVIDERS: PCP Family Medicine; Referring Provider Family Medicine; Visit Provider Family Medicine | DX: R00.2 Palpitations (principal); I49.9 Cardiac arrhythmia, unspecified | CPT/HCPCS: 93246 ==

== ENCOUNTER → 2024-05-12 09:11 | Outpatient (CLI) | payer OTHER, SELFPAY ==
--- NOTE | 2024-05-12 09:11 | DI.ECHO.S_ITS ---
[facility] : : [address] : : [place] : : [id number] : : Phone: [phone] Echocardiogram Report + + :Name: SHERON SARGENT Study Date: 05/12/2024 Height: 69 in : :[facility] ReadingLocation: Weight: 145 lb : : Gender: Female BSA: 1.8 m2 : :: 1960 Age: 63 yrs BP: 126/80 mmHg: :Reason For Study: PALPITATIONS, S/P ABLATION : :Ordering Physician: Keenan DALTONformed By: Debo Lunsford : :Referring: RUPA DALTON : + + Interpretation Summary The left ventricle is normal in size and wall thickness. The left ventricular ejection fraction is normal. Left ventricular ejection fraction is estimated to be 60 +/- 5%. No significant change in LVEF from the previous study. The right ventricle is normal in size and function. There is mild mitral regurgitation. Compared to the prior echo study, there has been no change in the severity of mitral regurgitation. There is mild tricuspid regurgitation. Compared to the prior echo exam, there has been no change in TR severity. The right ventricular systolic pressure is estimated to be at least 31 mmHg based on an estimated right atrial pressure of 8 mm Hg. Procedure: A two-dimensional transthoracic echocardiogram with color flow and Doppler was performed. The study quality was technically adequate. Comparison is made with the echocardiogram of 04/29/2023. The patient was in sinus bradycardia with heart rates between 54-69 bpm during the exam. EKG artifact Images 96-100. Left Ventricle: The left ventricle is normal in size and wall thickness. There is no thrombus. A false chord is noted (normal variant). The left ventricular ejection fraction is normal. Left ventricular ejection fraction is estimated to be 60 +/- 5%. There are no focal wall motion abnormalities. Diastolic parameters suggest probable normal left ventricular diastolic function and normal filling pressures. Right Ventricle: The right ventricle is normal in size and function. Atria: The left atrial size is normal. There has been no significant change since the previous study. Right atrial size is normal. There is no Doppler evidence for an interatrial shunt. Mitral Valve: The mitral valve is normal. There is mild mitral regurgitation. Compared to the prior echo study, there has been no change in the severity of mitral regurgitation. Aortic Valve: The aortic valve is trileaflet. The aortic valve opens well. There is no aortic valve stenosis. There is trace aortic regurgitation. Tricuspid Valve: The tricuspid valve is normal. There is mild tricuspid regurgitation. The right ventricular systolic pressure is estimated to be at least 31 mmHg based on an estimated right atrial pressure of 8 mm Hg. Compared to the prior echo exam, there has been no change in TR severity. Pulmonic Valve: The pulmonic valve leaflets are thin and pliable; valve motion is normal. There is mild pulmonic regurgitation. Great Vessels: The aortic root is normal size. The dimensions of the ascending aorta are normal. The IVC is dilated (diameter is greater than 2.1 cm) yet it collapses greater than 50% with a sniff. This suggests a right atrial pressure of 8 mm Hg. Pericardium/ Pleura There is no pericardial effusion. There is no pleural effusion. MMode/2D Measurements & Calculations LVIDd: 4.9 cm LVOT diam: 2.0 cm LVIDs: 3.2 cm Ao root diam: 3.3 cm FS: 34.2 % asc Aorta Diam: 3.1 cm IVSd: 0.77 cm Ao Arch Diam (Prox Trans): 3.0 cm LVPWd: 0.71 cm LV delacruz. diameter/BSA (cm/m^2): 2.7 LV sys. diameter/BSA (cm/m^2): 1.8 LA A2 area: 20.3 cm2 RA long axis: 4.5 cm LA A4 area: 14.8 cm2 RA area: 15.4 cm2 LA length (vol): 4.3 cm RA vol: 44.8 ml LA vol: 58.8 ml RA : 24.9 ml/m2 LA vol index: 32.7 ml/m2 IVC diam: 2.1 cm RVD1 (basal): 3.3 cm TAPSE: 2.5 cm Doppler Measurements & Calculations Ao V2 max: 129.0 cm/sec LVOT Max Herrera: 79.5 cm/sec Ao V2 mean: 91.1 cm/sec LV V1 max P.5 mmHg Ao max P.7 mmHg LV V1 VTI: 18.4 cm Ao mean P.7 mmHg ZULEIKA(I,D): 2.1 cm2 Ao V2 VTI: 29.1 cm ZULEIKA(V,D): 2.0 cm2 sev ratio: 0.63 ZULEIKA indexed to BSA (cm^2/m^2): 1.1 MV E max herrera: 61.0 cm/sec TR max herrera: 237.2 cm/sec MV A max herrera: 34.6 cm/sec TR max P.5 mmHg MV E/A: 1.8 PA V2 max: 63.6 cm/sec Med Peak E' Herrera: 8.1 cm/sec PA V2 mean: 46.7 cm/sec E/E' med: 7.5 PA mean P.94 mmHg Lat Peak E' Herrera: 9.7 cm/sec PA pr(Accel): 32.8 mmHg E/E' lat: 6.3 E/e' average: 6.9 MV dec time: 0.26 sec SV(LVOT): 59.9 ml Reading Physician:01:44 PM
== END ==
LOC: ECHO 09:11
PROVIDERS: PCP Family Medicine; Referring Provider Family Medicine; Visit Provider Family Medicine
DX: I08.1 Rheumatic disorders of both mitral and tricuspid valves (principal); I49.9 Cardiac arrhythmia, unspecified; R00.2 Palpitations
CPT/HCPCS: 93306

== ENCOUNTER 2024-05-15 06:34 | Observation (INO) | payer OTHER, SELFPAY ==
[2024-05-15] VITALS (14 sets, daily range): BP systolic 105–142; BP diastolic 52–77; PULSE 60–73; RESP 15–21; TEMP 35.8–36.4; O2SAT 98–100; BMI 21.4
--- NOTE | 2024-05-15 07:21 | PC.NURSE ---
Pt reports being up early and already having coffee. She was walking down wooden stairs when her foot slipped and she landed on her left lower back. Pt unable to get into ER [facility] d/t pain, sitting up in wheelchair. States she is unable to breathe when she moves d/t pain. Denies dizziness, lightheaded, nausea. Denies hitting her head.
--- NOTE | 2024-05-15 07:24 | DI.RAD.S_ITS ---
PROCEDURE: XR LUMBAR SPINE 2-3V INDICATIONS: Fall with low back pain TECHNIQUE: 3 views of the lumbar spine were acquired. COMPARISON: None. FINDINGS: Bones: 5 [id number] vertebrae are present. Mild dextroconvex curvature. Grade 1 anterolisthesis at L4-5 measuring 4 mm. No acute vertebral body compression fractures. No suspicious bony lesions. Multilevel disc space narrowing and degenerative endplate changes. Multilevel facet hypertrophy. Soft tissues: Overlying bowel gas pattern is normal. No suspicious soft tissue calcifications. IMPRESSION: 1. No acute osseous abnormality. If symptoms persist or if there is continued clinical concern, cross-sectional imaging such as MRI or CT may be helpful for further evaluation. 2. Moderate multilevel spondylosis and degenerative spondylolisthesis. Dextroconvex curvature. Approved by: Lukasz Barry M.D. on 05/15/2024 at 8:41
[2024-05-15] MEDS: HYDROMORPHONE 1 MG INJ IM (07:27)
--- NOTE | 2024-05-15 07:35 | ED_ITS ---
HPI - Back Pain/Injury General Chief Complaint: Back Pain/Injury Stated Complaint: fall, back and rib pain Time Seen by Provider: 05/15/24 07:01 Source: patient and family Mode of arrival: Ambulatory Limitations: no limitations History of Present Illness HPI Narrative: Patient is a 63-year-old female here for evaluation of left-sided lower back/flank pain that started after she tripped and fell this morning. She states her foot slipped. She fell approximately 2 steps down. She did hit her side on the step. Did not hit her head. No loss of consciousness. Not on blood thinners. No extremity injuries other than some discomfort to the toes on both of her feet. Pain radiating around to the front on the left abdomen. Not on blood thinners. Related Data Home Medications Medication Instructions Recorded Confirmed tretinoin 0.05 % topical cream applic topical 11/24/23 04/08/24 triamcinolone acetonide 0.1 % 1 applic topical 11/24/23 04/08/24 topical cream Previous Rx's Medication Instructions Recorded bupropion HCl 150 mg 24 hr tablet, 150 mg PO QAM #90 tabs 04/08/24 extended release Allergies Allergy/AdvReac Type Severity Reaction Status Date / Time No Known Drug Allergies Allergy Verified 04/08/24 15:19 Review of Systems Review of Systems Narrative: See HPI Patient History Medical History Osteoarthritis (~2009) Anxiety Cervical spine disease (~2013) Cardiac arrhythmia (~2022) Breast cancer (~2010) Colon polyps Lung nodule Closed left clavicular fracture Pelvic fracture Wears contact lenses Acne Depression (~1986) Foot fracture (~2011) Ankle pain (~2018) Mumps Measles Chicken pox Human papilloma virus Abnormal Pap smear of cervix (~1993) Osteoarthritis of both hands Surgical History H/O tubal ligation Anesthesia Status post colonoscopy Status post hysteroscopy Status post dilation and curettage Status post sclerotherapy of varicose veins (~1998) Status post breast biopsy Status post breast biopsy Family History (Updated 09/05/23 @ 16:36 by Christina Machado) Father Cancer Diabetes mellitus Heart disease Hypertension High cholesterol Mental health problem Mother History of heart disease Mental health problem Lung cancer Hypertension Sister Mental health problem Sister Heart disease Hyperlipidemia Mental health problem Sister Mental health problem Grandmother Cancer Hypertension Grandfather Stroke Grandmother Mental health problem Lung cancer Social History marital status: number of children: 3 household members: spouse lives independently: Yes occupational status: other Smoking Status: Never smoker alcohol intake: current substance use type: does not use Smoking Status: Never smoker alcohol intake frequency: a few times a week Substance Use Type: does not use Exam Initial Vital Signs Initial Vital Signs: Vital Signs Temperature 97.6 F 05/15/24 06:56 Pulse Rate 71 05/15/24 06:56 Respiratory Rate 18 05/15/24 06:56 Blood Pressure 128/77 05/15/24 06:56 Pulse Oximetry 99 05/15/24 06:56 Oxygen Delivery Method Room Air 05/15/24 06:56 HENMT Head: normal to inspection and normocephalic Chest Other: Discomfort left lower lateral ribs Resp Effort & Inspection: normal respiratory effort Cardio Rate: regular rate Back/Spine/Pelvis Thoracic/Lumbar Spine: paraspinal tenderness (Left-sided paraspinal), No thoracic spinal tenderness and lumbar spinal tenderness Skin General: no rashes or lesions noted Neuro General: patient alert, patient awake and patient oriented x3 Extrem General: normal to inspection and capillary refill normal Other: Discomfort with palpation the tip of the 2nd toe in the left foot and at the tip of the 4th toe in the right foot. Course Orders Ordered: ED Orders 05/15/24 07:24 XR lumbar spine 2-3V Stat 05/15/24 07:35 XR ribs LT min 3V w CXR1V Stat 05/15/24 10:40 Complete Blood Count AUTO DIFF Stat Comprehensive Metabolic Panel Stat Lipase Stat 05/15/24 11:53 CT abdomen pelvis w con Stat 05/15/24 12:29 Consult to General Surgery Urgent Hydromorphone HCl (Hydromorphone 2 Mg Inj) 1 mg IV Q4HR PRN PRN Reason: Pain, Mild (1-3) Ondansetron HCl (Ondansetron 4 Mg/2 Ml Inj) 4 mg IV Q4HR PRN PRN Reason: Nausea And Vomiting Discontinued Medications Hydrocodone Bitart/Acetaminophen (Hydrocodone/Acet 5/325 Tablet) 1 tab PO NOW ONE Stop: 05/15/24 10:01 Last Admin: 05/15/24 10:29 Dose: 1 tab Documented By: COLBY Hydromorphone HCl (Hydromorphone 1 Mg Inj) 1 mg IM NOW ONE Stop: 05/15/24 07:25 Last Admin: 05/15/24 07:27 Dose: 1 mg Documented By: COLBY Vital Signs Vital signs: Vital Signs - 8 hr 05/15/24 06:56 05/15/24 10:01 05/15/24 10:40 Temperature 97.6 F Pulse Rate 71 60 61 Respiratory Rate 18 20 Blood Pressure 128/77 Pulse Oximetry 99 99 99 Oxygen Delivery Method Room Air Room Air 05/15/24 10:40 05/15/24 11:00 05/15/24 11:30 Temperature Pulse Rate 60 67 Respiratory Rate Blood Pressure 116/60 Pulse Oximetry 98 98 Oxygen Delivery Method Room Air 05/15/24 12:00 05/15/24 12:30 Temperature Pulse Rate 64 62 Respiratory Rate Blood Pressure Pulse Oximetry 99 98 Oxygen Delivery Method Room Air MDM - Back Pain/Injury Lab Data Attestation: I reviewed the patient's lab results. 05/15/24 10:40 05/15/24 10:40 Labs: Lab Results 05/15/24 Range/Units 10:40 WBC 8.0 (4.5-11.0) X10^3/uL RBC 4.04 (4.0-5.2) X10^6/uL Hgb 12.1 (12.0-16.0) g/dL Hct 34.7 L (36-46) % MCV 85.9 (80-100) fL MCH 29.9 (26-34) PG MCHC 34.8 (30-36) % RDW 13.2 (11.6-14.8) % Plt Count 308 (150-400) X10^3/uL Neut % (Auto) 80.1 H (50-75) % Lymph % (Auto) 15.2 L (25-40) % [place] % (Auto) 3.8 (3-14) % Eos % (Auto) 0.4 L (2-4) % Baso % (Auto) 0.5 (0-2) % Neut # (Auto) 6400 (4258-5661) /uL Lymph # (Auto) 1200 (0199-0467) /uL [place] # (Auto) 300 (0-900) /uL Eos # (Auto) 0 (0-450) /uL Baso # (Auto) 0 (0-100) /uL Sodium 138 (137-145) mmol/L Potassium 4.1 (3.4-5.1) mmol/L Chloride 105 (98-107) mmol/L Carbon Dioxide 27 (22-32) mmol/L BUN 23 H (7-17) mg/dL Creatinine 0.73 (0.52-1.04) mg/dL Estimated GFR > 60 (>60) mL/min BUN/Creatinine Ratio 31.5 H (6-22) Glucose 99 (80-110) mg/dL Calcium 9.3 (8.4-10.2) mg/dL Total Bilirubin 0.5 (0.2-1.3) mg/dL AST 28 (14-36) IU/L ALT 18 (<35) IU/L Alkaline Phosphatase 52 (38-126) U/L Total Protein 7.4 (6.3-8.2) g/dL Albumin 4.6 (3.5-5.0) g/dL Globulin 2.8 (1.7-4.1) g/dL Albumin/Globulin Ratio 1.6 (1.0-2.8) Lipase 152 (23-300) U/L Imaging Data rib x-ray: Radiologist's Impression: PROCEDURE: XR RIBS LT MIN 3V W CXR1V INDICATIONS: L lower lateral rib pain after fall TECHNIQUE: 2 views of the ribs were acquired, along with a single view chest. COMPARISON: None. FINDINGS: Surgical changes and devices: None. Bones and chest wall: Minimally displaced fracture of the lateral left 10th rib. No pleural effusion or pneumothorax. No suspicious bony lesions. Overlying soft tissues appear unremarkable. Lungs and pleura: No pleural effusions or pneumothorax. Lungs appear clear. Mediastinum: Mediastinal contours appear normal. Heart size is normal. IMPRESSION: Minimally displaced fracture of the lateral left 10th rib. No pleural effusion or pneumothorax. lumbar spine x-ray: Radiologist's Impression: [address] [id number] XRay Report Signed Patient: Jacqui Nava MR#: [id number] : 1960 Acct:[id number] Age/Sex: 63 / F Date of Service: 05/15/24 Loc: ED Accession Number: [id number] Procedure: XR lumbar spine 2-3V Ordering Provider: Praful Jimenez D.O. PROCEDURE: XR LUMBAR SPINE 2-3V INDICATIONS: Fall with low back pain TECHNIQUE: 3 views of the lumbar spine were acquired. COMPARISON: None. FINDINGS: Bones: 5 [id number] vertebrae are present. Mild dextroconvex curvature. Grade 1 anterolisthesis at L4-5 measuring 4 mm. No acute vertebral body compression fractures. No suspicious bony lesions. Multilevel disc space narrowing and degenerative endplate changes. Multilevel facet hypertrophy. Soft tissues: Overlying bowel gas pattern is normal. No suspicious soft tissue calcifications. IMPRESSION: 1. No acute osseous abnormality. If symptoms persist or if there is continued clinical concern, cross-sectional imaging such as MRI or CT may be helpful for further evaluation. 2. Moderate multilevel spondylosis and degenerative spondylolisthesis. Dextroconvex curvature. CT scan - abdomen/pelvis: Radiologist's Impression: PROCEDURE: CT ABDOMEN PELVIS W CON INDICATIONS: LUQ pain after fall eval for spleen injury TECHNIQUE: After the administration of intravenous contrast, axial sections acquired from the lung bases to the pubic symphysis. Coronal and sagittal reformats were performed. For radiation dose reduction, the following was used: automated exposure control, adjustment of mA and/or kV according to patient size. COMPARISON: None. FINDINGS: Image quality: Diagnostic. Lower Chest: No significant findings. ABDOMEN: Liver: No solid mass. Gallbladder: No radiopaque gallstones or wall thickening. Biliary ducts: No biliary dilation. Pancreas: No ductal dilation. Spleen: Ill-defined hypodensity within the inferior margin of the spleen without extravasation or laceration identified. Hypodensity has a somewhat linear configuration from anterior-posterior measuring approximately 4.2 centimeters in diameter. No subcapsular hematoma. Adrenal Glands: No adrenal nodules. Kidneys and Ureters: No hydronephrosis. No solid mass. No complex renal cystic lesion which requires follow up. Multiple simple cysts within the bilateral kidneys the largest measuring up to 8 centimeters. Stomach and Bowel: Normal colonic caliber, without significant wall thickening. Peritoneum: No abnormal intraperitoneal fluid. No free air. Ventral Wall: No significant ventral hernia. Abdominal Nodes: No retroperitoneal or mesenteric adenopathy by size criteria. Vessels: Aorta and inferior vena cava are normal in size. PELVIS: Pelvic Organs: Unremarkable. Bladder: No bladder wall thickening, accounting for underdistention. Pelvic Nodes: No enlarged lymph nodes. Miscellaneous: No inguinal hernias are seen. Bones: No aggressive osseous abnormality. Posterior rib fracture of the left 12th rib and lateral fracture of the left 10th rib IMPRESSION: Grade 2 splenic injury. Left lateral and posterior rib fractures. MDM Narrative Medical decision making narrative: Given the patient's history this does appear to be a mechanical fall. She hit her foot slipped out from underneath her but she did land on her left side. She was in quite a bit of discomfort upon arrival. Pain medications were administered. Lumbar spine shows no signs of fracture. Rib x-rays does show 10th rib fracture on the left. Given the amount of discomfort that she was having and the reported abdominal pain at bedside fast exam was performed. He was unable to see the kidney/splenic interface on the left. She stated that she thought that maybe 1 time she was told there was a large cyst in this area. There did appear to be a fluid collection on this side. A CT scan of the abdomen was obtained. It does show a grade 2 splenic injury. No bleeding. No laceration. No other intra-abdominal pathology noted. Discussed the case with Dr. Gannon hospitalist investor relations manager. We will admit for observation. Discussed the findings of the CT scan with the patient of the need for observation. She expressed understanding and agreement with the plan. Critical Care Time Critical Care Time Critical Care Time: Yes Total Critical Care Time: 45 Attestation: The high probability of a clinically significant, sudden or life threatening deterioration of the [splenic, musculoskeletal] system(s) required my full and direct attention, intervention and personal management. The aggregate critical care time was [45] minutes. This time is in addition to time spent performing reported procedures but includes the following: [x] Data Review and interpretation [x] Patient assessment and monitoring of vital signs [x] Documentation [x] Medication orders and management Discharge Plan Departure Patient Disposition: Admitted as Observation Clinical Impression: Spleen injury, Multiple fractures of ribs Admit Date/Time: 05/15/24 12:39 Admit Provider: Sivan Gannon
[2024-05-15] MEDS: HYDROCODONE/ACET 5/325 TABLET 1 TAB PO (10:29)
[2024-05-15 10:48] LABS: Add Manual Diff / Slide Review NO; Basophils Absolute Auto 0 /uL (0-100); Basophils Percent Auto 0.5 % (0-2); Eosinophils Absolute Auto 0 /uL (0-450); Eosinophils Percent Auto 0.4 % (2-4); Hematocrit 34.7 % (36-46); Hemoglobin 12.1 g/dL (12.0-16.0); Lymphocytes Absolute Auto 1200 /uL (1100-4500); Lymphocytes Percent Auto 15.2 % (25-40); Mean Corpuscular HGB Conc 34.8 % (30-36); Mean Corpuscular Hemoglobin 29.9 PG (26-34); Mean Corpuscular Volume 85.9 fL (80-100); Monocytes Absolute Auto 300 /uL (0-900); Monocytes Percent Auto 3.8 % (3-14); Neutrophils Absolute Auto 6400 /uL (1500-7000); Neutrophils Percent Auto 80.1 % (50-75); Platelet Count 308 X10^3/uL (150-400); Red Blood Cell Count 4.04 X10^6/uL (4.0-5.2); Red Cell Distribution Width 13.2 % (11.6-14.8)
[2024-05-15 11:02] LABS: Alanine Aminotransferase 18 IU/L (<35); Albumin 4.6 g/dL (3.5-5.0); Albumin Globulin Ratio 1.6 (1.0-2.8); Alkaline Phosphatase 52 U/L (38-126); Aspartate Aminotransferase 28 IU/L (14-36); BUN Creatinine Ratio 31.5 (6-22); Bilirubin Total 0.5 mg/dL (0.2-1.3); Blood Urea Nitrogen 23 mg/dL (7-17); Calcium 9.3 mg/dL (8.4-10.2); Carbon Dioxide 27 mmol/L (22-32); Chloride 105 mmol/L (98-107); Estimated Glomerular Filt Rate > 60 mL/min (>60); Globulin 2.8 g/dL (1.7-4.1); Glucose 99 mg/dL (80-110); HEMOLYSIS < 15 (0-50); Lipase 152 U/L (23-300); Potassium 4.1 mmol/L (3.4-5.1); Sodium 138 mmol/L (137-145); Total Protein 7.4 g/dL (6.3-8.2)
--- NOTE | 2024-05-15 11:53 | DI.CT.S_ITS ---
PROCEDURE: CT ABDOMEN PELVIS W CON INDICATIONS: LUQ pain after fall eval for spleen injury TECHNIQUE: After the administration of intravenous contrast, axial sections acquired from the lung bases to the pubic symphysis. Coronal and sagittal reformats were performed. For radiation dose reduction, the following was used: automated exposure control, adjustment of mA and/or kV according to patient size. COMPARISON: None. FINDINGS: Image quality: Diagnostic. Lower Chest: No significant findings. ABDOMEN: Liver: No solid mass. Gallbladder: No radiopaque gallstones or wall thickening. Biliary ducts: No biliary dilation. Pancreas: No ductal dilation. Spleen: Ill-defined hypodensity within the inferior margin of the spleen without extravasation or laceration identified. Hypodensity has a somewhat linear configuration from anterior-posterior measuring approximately 4.2 centimeters in diameter. No subcapsular hematoma. Adrenal Glands: No adrenal nodules. Kidneys and Ureters: No hydronephrosis. No solid mass. No complex renal cystic lesion which requires follow up. Multiple simple cysts within the bilateral kidneys the largest measuring up to 8 centimeters. Stomach and Bowel: Normal colonic caliber, without significant wall thickening. Peritoneum: No abnormal intraperitoneal fluid. No free air. Ventral Wall: No significant ventral hernia. Abdominal Nodes: No retroperitoneal or mesenteric adenopathy by size criteria. Vessels: Aorta and inferior vena cava are normal in size. PELVIS: Pelvic Organs: Unremarkable. Bladder: No bladder wall thickening, accounting for underdistention. Pelvic Nodes: No enlarged lymph nodes. Miscellaneous: No inguinal hernias are seen. Bones: No aggressive osseous abnormality. Posterior rib fracture of the left 12th rib and lateral fracture of the left 10th rib IMPRESSION: Grade 2 splenic injury. Left lateral and posterior rib fractures. Dictated by: Sid Cesar M.D. on 05/15/2024 at 10:58 Approved by: Sid Cesar M.D. on 05/15/2024 at 11:11
--- NOTE | 2024-05-15 14:02 | ED.BACK ---
HPI - Back Pain/Injury General Chief Complaint: Back Pain/Injury Stated Complaint: fall, back and rib pain Time Seen by Provider: 05/15/24 07:01 Source: patient and family Limitations: no limitations History of Present Illness HPI Narrative: Pt fell, NO LOC, fractured one (10th) rib, and grade II splenic laceration, NO BLEEDING, NO HEMATOMA, will observe x 24 hrs, repeat H&H, and discharge tomorrow, if / when stable. SURGICAL H & P Date of Admission: 05/15/24 PCP: Suzanne Marcos DO I had the privilege today to see patient Jacqui Nava. Chief Complaint / History of Present Illness: Jacqui Nava is a very pleasant 63 yo who presents s/p fall, and NO LOC, fractured one (10th) rib, and grade II splenic laceration, NO BLEEDING, NO HEMATOMA, will observe x 24 hrs, repeat H&H, and discharge tomorrow, if / when stable. Review of Systems: Constitutional: Negative for fever, chills, diaphoresis, appetite change and fatigue. HENT: Negative for sore throat, trouble swallowing and voice change. Respiratory: Negative for cough, positive for shortness of breath no wheezing. Cardiovascular: Negative for chest pain positive for SOB with one flight of stairs exertion, no pitting LE edema. Gastrointestinal: Negative for nausea, vomiting, abdominal distention, constipation, no diarrhea, blood in stool, anal bleeding or rectal pain. Musculoskeletal: Negative for joint swelling and arthralgias. Positive for ACUTE pain in her Left chest, from the fall, and ribs fractures. Skin: Warm and dry, well perfused. Neurological: Negative for seizures, syncope, speech difficulty and weakness. Hematological/Lymphatic: Negative for adenopathy. No history of DVT/PE. Does not bruise/bleed easily. Psychiatric/Behavioral: Negative for agitation. All others reviewed and negative. Physical Exam: General appearance: Pt Alert and oriented, in no apparent acute distress. HEENT: CANDY, Conjunctiva clear. EOMI, No JVDs, Bruits, Megalies: neither thyroid nor lymph nodes. Lungs: Clear to auscultation bilaterally. Heart: Regular rate and rhythm, S1, S2 normal, no murmur, rub or gallop. Abdomen: Non tender. Non distended. Positive bowel sounds. No hernias noted, no masses palpable. Extremities: Warm, well perfused, no cyanosis or edema. Skin: Skin color, texture, turgor normal. Neurologic: Grossly normal, Cranial nerves from II to XII intact, Deep tendon reflexes normal. Lymph nodes: No palpable LNs, Cervical, groins, abdominal. Musculoskeletal: Bilateral Upper and lower extremities ROM within normal limits. Left chest pain, from the both ribs fractures. Radiologic / Imaging / TESTING See HPI Assessment & plan: Jacqui Nava is a very pleasant 63 Female presenting with fall, NO LOC, fractured one (10th) rib, and grade II splenic laceration, NO BLEEDING, NO HEMATOMA, will control her pain, and give her a stool softner, and observe x 24 hrs, repeat H&H, and discharge tomorrow, if / when stable.. Related Data Home Medications Medication Instructions Recorded Confirmed tretinoin 0.05 % topical cream applic topical 11/24/23 04/08/24 triamcinolone acetonide 0.1 % 1 applic topical 11/24/23 04/08/24 topical cream Previous Rx's Medication Instructions Recorded bupropion HCl 150 mg 24 hr tablet, 150 mg PO QAM #90 tabs 04/08/24 extended release Allergies Allergy/AdvReac Type Severity Reaction Status Date / Time No Known Drug Allergies Allergy Verified 04/08/24 15:19 Patient History Medical History Osteoarthritis (~2009) Anxiety Cervical spine disease (~2013) Cardiac arrhythmia (~2022) Breast cancer (~2010) Colon polyps Lung nodule Closed left clavicular fracture Pelvic fracture Wears contact lenses Acne Depression (~1986) Foot fracture (~2011) Ankle pain (~2018) Mumps Measles Chicken pox Human papilloma virus Abnormal Pap smear of cervix (~1993) Osteoarthritis of both hands Surgical History H/O tubal ligation Anesthesia Status post colonoscopy Status post hysteroscopy Status post dilation and curettage Status post sclerotherapy of varicose veins (~1998) Status post breast biopsy Status post breast biopsy Family History (Updated 09/05/23 @ 16:36 by Christina Machado) Father Cancer Diabetes mellitus Heart disease Hypertension High cholesterol Mental health problem Mother History of heart disease Mental health problem Lung cancer Hypertension Sister Mental health problem Sister Heart disease Hyperlipidemia Mental health problem Sister Mental health problem Grandmother Cancer Hypertension Grandfather Stroke Grandmother Mental health problem Lung cancer Social History marital status: number of children: 3 household members: spouse lives independently: Yes occupational status: other Smoking Status: Never smoker alcohol intake: current substance use type: does not use Smoking Status: Never smoker alcohol intake frequency: a few times a week Substance Use Type: does not use Exam Initial Vital Signs Initial Vital Signs: Vital Signs Temperature 97.6 F 05/15/24 06:56 Pulse Rate 71 05/15/24 06:56 Respiratory Rate 18 05/15/24 06:56 Blood Pressure 128/77 05/15/24 06:56 Pulse Oximetry 99 05/15/24 06:56 Oxygen Delivery Method Room Air 05/15/24 06:56 Course Orders Ordered: ED Orders 05/15/24 07:24 XR lumbar spine 2-3V Stat 05/15/24 07:35 XR ribs LT min 3V w CXR1V Stat 05/15/24 10:40 Complete Blood Count AUTO DIFF Stat Comprehensive Metabolic Panel Stat Lipase Stat 05/15/24 11:53 CT abdomen pelvis w con Stat 05/15/24 12:29 Consult to General Surgery Urgent Hydromorphone HCl (Hydromorphone 2 Mg Inj) 1 mg IV Q4HR PRN PRN Reason: Pain, Mild (1-3) Ondansetron HCl (Ondansetron 4 Mg/2 Ml Inj) 4 mg IV Q4HR PRN PRN Reason: Nausea And Vomiting Discontinued Medications Hydrocodone Bitart/Acetaminophen (Hydrocodone/Acet 5/325 Tablet) 1 tab PO NOW ONE Stop: 05/15/24 10:01 Last Admin: 05/15/24 10:29 Dose: 1 tab Documented By: COLBY Hydromorphone HCl (Hydromorphone 1 Mg Inj) 1 mg IM NOW ONE Stop: 05/15/24 07:25 Last Admin: 05/15/24 07:27 Dose: 1 mg Documented By: COLBY Vital Signs Vital signs: Vital Signs - 8 hr 05/15/24 06:56 05/15/24 10:01 05/15/24 10:40 Temperature 97.6 F Pulse Rate 71 60 61 Respiratory Rate 18 20 Blood Pressure 128/77 Pulse Oximetry 99 99 99 Oxygen Delivery Method Room Air Room Air 05/15/24 10:40 05/15/24 11:00 05/15/24 11:30 Temperature Pulse Rate 60 67 Respiratory Rate Blood Pressure 116/60 Pulse Oximetry 98 98 Oxygen Delivery Method Room Air 05/15/24 12:00 05/15/24 12:30 Temperature Pulse Rate 64 62 Respiratory Rate Blood Pressure Pulse Oximetry 99 98 Oxygen Delivery Method Room Air MDM - Back Pain/Injury Lab Data 05/15/24 10:40 05/15/24 10:40 Labs: Lab Results 05/15/24 Range/Units 10:40 WBC 8.0 (4.5-11.0) X10^3/uL RBC 4.04 (4.0-5.2) X10^6/uL Hgb 12.1 (12.0-16.0) g/dL Hct 34.7 L (36-46) % MCV 85.9 (80-100) fL MCH 29.9 (26-34) PG MCHC 34.8 (30-36) % RDW 13.2 (11.6-14.8) % Plt Count 308 (150-400) X10^3/uL Neut % (Auto) 80.1 H (50-75) % Lymph % (Auto) 15.2 L (25-40) % [place] % (Auto) 3.8 (3-14) % Eos % (Auto) 0.4 L (2-4) % Baso % (Auto) 0.5 (0-2) % Neut # (Auto) 6400 (3144-8010) /uL Lymph # (Auto) 1200 (5108-8821) /uL [place] # (Auto) 300 (0-900) /uL Eos # (Auto) 0 (0-450) /uL Baso # (Auto) 0 (0-100) /uL Sodium 138 (137-145) mmol/L Potassium 4.1 (3.4-5.1) mmol/L Chloride 105 (98-107) mmol/L Carbon Dioxide 27 (22-32) mmol/L BUN 23 H (7-17) mg/dL Creatinine 0.73 (0.52-1.04) mg/dL Estimated GFR > 60 (>60) mL/min BUN/Creatinine Ratio 31.5 H (6-22) Glucose 99 (80-110) mg/dL Calcium 9.3 (8.4-10.2) mg/dL Total Bilirubin 0.5 (0.2-1.3) mg/dL AST 28 (14-36) IU/L ALT 18 (<35) IU/L Alkaline Phosphatase 52 (38-126) U/L Total Protein 7.4 (6.3-8.2) g/dL Albumin 4.6 (3.5-5.0) g/dL Globulin 2.8 (1.7-4.1) g/dL Albumin/Globulin Ratio 1.6 (1.0-2.8) Lipase 152 (23-300) U/L Discharge Plan Departure Patient Disposition: Admitted as Observation Clinical Impression: Spleen injury, Multiple fractures of ribs
[2024-05-15] MEDS: HYDROMORPHONE 2 MG INJ 1 MG IV ×2 (14:55→19:58)
--- NOTE | 2024-05-15 15:40 | PC.NURSE ---
pt admitted to room 222 from ER via stretcher, CC; fall on wooden stairs at home my foot slipped went down about 2 stairs with most impact on her left side fx ribs and spleen. A/o x4 medicated with dilaudid ivp with good pain relief but did have n/v briefly will med with zofran
[2024-05-15] MEDS: ONDANSETRON 4 MG/2 ML INJ IV ×2 (15:58→19:58)
[2024-05-15 18:16] LABS: Hematocrit 34.4 % (36-46); Hemoglobin 11.6 g/dL (12.0-16.0); Mean Corpuscular HGB Conc 33.8 % (30-36); Mean Corpuscular Hemoglobin 29.2 PG (26-34); Mean Corpuscular Volume 86.5 fL (80-100); Platelet Count 313 X10^3/uL (150-400); Red Blood Cell Count 3.98 X10^6/uL (4.0-5.2); White Blood Cell Count 12.1 X10^3/uL (4.5-11.0)
[2024-05-16] VITALS: BP 118/70; PULSE 73; RESP 17; TEMP 35.6; O2SAT 98
[2024-05-16] MEDS: HYDROMORPHONE 2 MG INJ 1 MG IV (00:02)
[2024-05-16] MEDS: ONDANSETRON 4 MG/2 ML INJ IV ×2 (00:02→07:55)
[2024-05-16 04:27] VITALS: BP 106/55; PULSE 76; RESP 14; TEMP 36.1; O2SAT 96
[2024-05-16 04:51] LABS: Hematocrit 32.6 % (36-46); Hemoglobin 11.3 g/dL (12.0-16.0); Mean Corpuscular HGB Conc 34.5 % (30-36); Mean Corpuscular Hemoglobin 29.7 PG (26-34); Mean Corpuscular Volume 85.9 fL (80-100); Platelet Count 299 X10^3/uL (150-400); Red Cell Distribution Width 13.3 % (11.6-14.8); White Blood Cell Count 8.8 X10^3/uL (4.5-11.0)
[2024-05-16] MEDS: HYDROMORPHONE 0.5 MG INJ IV (07:54)
[2024-05-16 08:27] VITALS: BP 121/67; PULSE 71; RESP 18; TEMP 36; O2SAT 96
[2024-05-16] MEDS: MORPHINE ER 15 MG TABLET PO (09:05)
[2024-05-16] MEDS: buPROPion XL 150 MG TAB PO (09:05)
[2024-05-16] MEDS: SENNOSIDES 8.6 MG TABLET 17.2 MG PO (09:05)
--- NOTE | 2024-05-16 10:27 | PM.PN.1 ---
Subjective Subjective Date Patient Seen: 05/16/24 Time Patient Seen: 10:27 Exam Vital Signs (past 8 hours): - 05/16/24 04:27 05/16/24 08:27 Temperature 97.0 F L 96.8 F L Pulse Rate 76 71 Respiratory Rate 14 18 Blood Pressure 106/55 L 121/67 Pulse Oximetry 96 96 Oxygen Flow Rate 0 0 Oxygen Delivery Method Room Air Oxygen Flow Rate 0 Narrative Exam Narrative: Pt feels MUCH better than yesterday with her pain control, MSContin 15 mg. Objective Labs 05/16/24 04:18 05/15/24 10:40 Labs: Laboratory Results - last 24 hr 05/15/24 05/15/24 05/16/24 10:40 18:00 04:18 WBC 8.0 12.1 H D 8.8 RBC 4.04 3.98 L 3.80 L Hgb 12.1 11.6 L 11.3 L Hct 34.7 L 34.4 L 32.6 L MCV 85.9 86.5 85.9 MCH 29.9 29.2 29.7 MCHC 34.8 33.8 34.5 RDW 13.2 13.0 13.3 Plt Count 308 313 299 Neut % (Auto) 80.1 H Lymph % (Auto) 15.2 L [place] % (Auto) 3.8 Eos % (Auto) 0.4 L Baso % (Auto) 0.5 Neut # (Auto) 6400 Lymph # (Auto) 1200 [place] # (Auto) 300 Eos # (Auto) 0 Baso # (Auto) 0 Sodium 138 Potassium 4.1 Chloride 105 Carbon Dioxide 27 BUN 23 H Creatinine 0.73 Estimated GFR > 60 BUN/Creatinine Ratio 31.5 H Glucose 99 Calcium 9.3 Total Bilirubin 0.5 AST 28 ALT 18 Alkaline Phosphatase 52 Total Protein 7.4 Albumin 4.6 Globulin 2.8 Albumin/Globulin Ratio 1.6 Lipase 152 [facility] Medical History Osteoarthritis (~2009) Anxiety Cervical spine disease (~2013) Cardiac arrhythmia (~2022) Breast cancer (~2010) Colon polyps Lung nodule Closed left clavicular fracture Pelvic fracture Wears contact lenses Acne Depression (~1986) Foot fracture (~2011) Ankle pain (~2018) Mumps Measles Chicken pox Human papilloma virus Abnormal Pap smear of cervix (~1993) Osteoarthritis of both hands Surgical History H/O tubal ligation Anesthesia Status post colonoscopy Status post hysteroscopy Status post dilation and curettage Status post sclerotherapy of varicose veins (~1998) Status post breast biopsy Status post breast biopsy Family History (Updated 09/05/23 @ 16:36 by Christina Machado) Father Cancer Diabetes mellitus Heart disease Hypertension High cholesterol Mental health problem Mother History of heart disease Mental health problem Lung cancer Hypertension Sister Mental health problem Sister Heart disease Hyperlipidemia Mental health problem Sister Mental health problem Grandmother Cancer Hypertension Grandfather Stroke Grandmother Mental health problem Lung cancer Social History marital status: number of children: 3 household members: spouse lives independently: Yes occupational status: other Smoking Status: Never smoker alcohol intake: current substance use type: does not use Assessment & Plan Assessment and plan (1) Multiple fractures of ribs: Status: Acute (2) Spleen injury: Status: Acute Assessment & Plan narrative: PTD#1 s/p fall and splenic grade II, and 2 left ribs fractures; Pt feels MUCH better than yesterday with her pain control, MSContin 15 mg. Will discharge today AFTER her stable Hb re-check at noon. Continue Incentive spirometry, and MSContin twice daily, and Senokot-S. She SHOULD be able to travel to [place] in 10 days. Time-Based Coding :: [TOTAL MINUTES] spent with patient and on the chart (including review of chart, obtaining history, exam, reviewing outside data, placing orders, documenting exam and treatment plan, and counseling patient) on [DATE]. Quality VTE Deep Vein Thrombosis/Pulmonary Embolism Present on Admission: No
--- NOTE | 2024-05-16 11:01 | CM.DANOTE ---
DCP Assessment Note Pt is a 63yo F that had a GLF down the stairs at home resulting in multiple rib fractures. PCP Suzanne Marcos Payer Chantel banda and self pay FLOUR TESTER reviewed EMR. Per chart review, pending pt's H&H, pt may dc home with family today. Per RN, pt doing well. Likely no CM needs. Ambulating with walker/was able to shower indep. FLOUR TESTER met with pt in room. Confirms lives with spouse in [place] indep. Denies any CM needs. Reports plan to travel to [place] in 10 days and is hopeful to f/u with PCP before she leaves. FLOUR TESTER notified OP TCM team via Webex of pt's discharge. P: dc today likely pending afternoon H&H, no identified barriers to safe dc home. Close OP f/u recommended with PCP. Spouse to transport. CM team will continue to follow as needed. JOSE Latham Discharge Planning/Care Management CM Discharge Assessment Start: 05/16/24 10:49 Freq: Status: Active Protocol: Document 05/16/24 11:00 (Rec: 05/16/24 11:01 [id number]) Discharge Planning Assessment Assigned Lead Janitor JOSE Casillas DPOA/Assigned Designee Name trevor Watson Contact Information [phone] Advance Directives? Yes Advance Directives on File No History Provided By Patient Prior Living Arrangements House Household Members spouse Type of transporation used prior to Drives own vehicle admit Independent with ADL's Yes Is patient alert and oriented? Yes Discharge Plan Home Transportation Arrangement partner Referrals Initiated None needed Whiteboard Updated in Patient Room with Yes name and ext. # of Lead Janitor Review Status In Process Please Provide Date Initial DC 05/16/24 Assessment Was Performed Next Review Type Continued Stay Review
[2024-05-16 12:00] VITALS: BP 112/73; PULSE 61; RESP 15; TEMP 35.8; O2SAT 99
[2024-05-16 13:02] LABS: Hemoglobin 11.6 g/dL (12.0-16.0); Mean Corpuscular HGB Conc 35.1 % (30-36); Mean Corpuscular Hemoglobin 30.3 PG (26-34); Mean Corpuscular Volume 86.2 fL (80-100); Platelet Count 283 X10^3/uL (150-400); Red Blood Cell Count 3.83 X10^6/uL (4.0-5.2); Red Cell Distribution Width 13.2 % (11.6-14.8); White Blood Cell Count 7.7 X10^3/uL (4.5-11.0)
[2024-05-16] MEDS: OXYCODONE/ACETAMINOPHEN 5/325 TABLET 1 TAB PO (13:47)
--- NOTE | 2024-05-16 15:13 | PC.NURSE ---
D/c information reviewed with Pt, including no driving while taking narcotics, and drinking plenty of fluids to avoid dehydration and constipation. Gave Pt hard scripts for pharmacy. Pt agreeable to d/c instructions and able to dress herself. IV removed. Pt confirmed she had all of her belongings and exited via w/c with MANAGER LIGHTING to private vehicle.
== END 2024-05-16 14:00 | disposition home or self-care (01) ==
LOC: ED 12:29 → AC 12:40
PROVIDERS: Admitting Provider Surgery; Emergency Provider Emergency Medicine; PCP Family Medicine; Referring Provider Emergency Medicine; Visit Provider Surgery
DX: M54.50 Low back pain, unspecified (principal); S22.32XA Fracture of one rib, left side, initial encounter for closed fracture; S36.031A Moderate laceration of spleen, initial encounter; W17.89XA Other fall from one level to another, initial encounter
CPT/HCPCS: 36415; 71101; 72100; 74177; 80053; 83690; 85025; 85027; 96372; 96374; 96375; 96376; 99231; 99232; 99284; 99291; G0378; J1170; J2405; Q9967

== ENCOUNTER → 2024-08-10 11:28 | Outpatient (CLI) | payer OTHER, SELFPAY ==
[2024-05-15 12:40] VITALS: BMI 21.4
--- NOTE | 2024-08-10 11:30 | DI.RAD.S_ITS ---
PROCEDURE: XR FOOT LT MIN 3V INDICATIONS: rule out fracture, severe arthritis at base of 2nd, 3rd toes TECHNIQUE: 3 views of the foot were acquired. COMPARISON: None. FINDINGS: Bones: No fractures or dislocations. No suspicious bony lesions. Type 2 accessory navicular. Soft tissues: No tibiotalar joint effusion. Achilles tendon appears normal. IMPRESSION: No acute bony abnormality. Dictated by: Deangelo Torres M.D. on 08/10/2024 at 19:56 Approved by: Deangelo Torres M.D. on 08/10/2024 at 19:58
== END ==
PROVIDERS: PCP Family Medicine; Referring Provider Family Medicine; Visit Provider Family Medicine
DX: S99.929A Unspecified injury of unspecified foot, initial encounter (principal); X58.XXXA Exposure to other specified factors, initial encounter
CPT/HCPCS: 73630

== ENCOUNTER → 2024-10-05 10:47 | Outpatient (CLI) | payer OTHER, SELFPAY ==
[2024-08-31 12:27] VITALS: BMI 21.4
--- NOTE | 2024-10-05 10:49 | DI.CT.S_ITS ---
PROCEDURE: CT CHEST WO CON INDICATIONS: lung nodules follow up TECHNIQUE: Noncontrast 5 mm thick sections acquired from the pulmonary apices to the posterior costophrenic angles. 1 mm lung window, 5 mm thick coronal and sagittal and 7 mm axial MIP reformats were then acquired. For radiation dose reduction, the following was used: automated exposure control, adjustment of mA and/or kV according to patient size. COMPARISON: [facility], CT, CT CHEST W CON, 08/19/2023, 12:24. [facility], CT, CT CHEST WO CON, 11/01/2021, 10:21. [facility], CT, CT CHEST WO CON, 08/28/2020, 11:53. FINDINGS: Image quality: Diagnostic. Thyroid: Within normal limits. Cardiac: Heart size within normal limits. No pericardial effusion. Aorta: Thoracic aortic diameter within normal limits. Pulmonary Artery: Main pulmonary artery diameter within normal limits. Lungs: No focal lung consolidation. The following pulmonary nodules are identified on series 3: * Image 67 - 4 mm triangular left upper lobe apical segment subpleural nodule, likely representing an intrapulmonary lymph node * Image 149 - 3 mm left lower lobe superior segment perifissural triangular nodule, likely representing an intrapulmonary lymph node * Image 156 - 3 mm right lower lobe triangular perifissural nodule, likely representing an intrapulmonary lymph node Pleura: No pneumothorax or pleural effusion. Airways: The trachea and mainstem bronchi are patent. Lymph Nodes: No mediastinal, hilar, or axillary lymphadenopathy. Esophagus: Within normal limits. Bones: No acute osseous abnormality. Upper Abdomen: Partially identified left renal 6.6 cm simple cyst (2/110). IMPRESSION: No significant change in pulmonary nodules, which likely represent intrapulmonary lymph nodes. No further follow-up is necessary. If the patient has high risk factors such as a smoking history, then consider enrollment in annual low-dose chest CT for lung cancer screening. Dictated by: Deangelo Torres M.D. on 10/05/2024 at 16:00 Approved by: Deangelo Torres M.D. on 10/05/2024 at 16:11
== END ==
PROVIDERS: PCP Family Medicine; Referring Provider Family Medicine; Visit Provider Family Medicine
DX: R91.8 Other nonspecific abnormal finding of lung field (principal); N28.1 Cyst of kidney, acquired
CPT/HCPCS: 71250

== ENCOUNTER → 2024-11-03 12:38 | Outpatient (CLI) | payer MEDICARE, OTHER, SELFPAY ==
[2024-08-31 12:27] VITALS: BMI 21.4
--- NOTE | 2024-11-03 12:40 | DI.RAD.S_ITS ---
PROCEDURE: XR DEXA AXIAL SKELETON INDICATIONS: Osteoporosis screening COMPARISON: DEXA 03/08/2012 FINDINGS: Lumbar Spine: Bone mineral density 0.919 g/cm2, T score -1.2. Prior DEXA was performed using dissimilar scan type or analysis method. Left Femoral Neck: Bone mineral density 0.703 g/cm2, T score -1.3. Left Hip: Bone mineral density 0.824 g/cm2, T score -1.0. Prior DEXA was performed using dissimilar scan type or analysis method. Fracture Risk Calculation (when applicable): 10-year fracture risk of a major osteoporotic fracture 7.4% and of a hip fracture 0.7%. (T score greater or equal to -1.0 to: NORMAL) (T score from -1.1 to -2.4: OSTEOPENIA) (T score less than or equal to -2.5: OSTEOPOROSIS) IMPRESSION: By WHO criteria, patient has osteopenia. Follow-up guidelines as follows: Osteoporosis: Consider a repeat DEXA and Vertebral Fracture Assessment (VFA) exam in 2 years or sooner if medically necessary, to reassess this patient's status. Osteopenia: Consider a repeat DEXA in 2-3 years to reassess this patient's status, or if there is a new clinical indication. Normal: Consider a repeat DEXA in 5 years or sooner, or if there is a new clinical indication. All treatment decisions require clinical judgment and consideration of individual patient factors, including patient preferences, comorbidities, previous drug use, risk factors not captured in the FRAX model (e.g., frailty, falls, vitamin D deficiency, increased bone turnover, interval significant decline in bone density ) and possible under- or over-estimation of fracture risk by FRAX. In addition, the NOF Guide recommends that FDA-approved medical therapies be considered in postmenopausal women and men age >= 50 years with a: * Hip or vertebral (clinical or morphometric) fracture * T-score of <=-2.5 at the spine or hip * Ten-year fracture probability by FRAX of >= 3% for hip fracture or >=20% for major osteoporotic fracture. Approved by: Lukasz Barry M.D. on 11/03/2024 at 21:11
== END ==
PROVIDERS: PCP Family Medicine; Referring Provider Family Medicine; Visit Provider Family Medicine
DX: Z78.0 Asymptomatic menopausal state (principal); M85.89 Other specified disorders of bone density and structure, multiple sites
CPT/HCPCS: 77080

== ENCOUNTER → 2025-02-27 07:13 | Outpatient (CLI) | payer MEDICARE, OTHER, SELFPAY ==
[2024-08-31 12:27] VITALS: BMI 21.4
[2025-02-27 07:40] LABS: Add Manual Diff / Slide Review NO; Hematocrit 34.9 % (36-46); Hemoglobin 12.1 g/dL (12.0-16.0); Lymphocytes Absolute Auto 2100 /uL (1100-4500); Mean Corpuscular HGB Conc 34.6 % (30-36); Mean Corpuscular Hemoglobin 29.9 PG (26-34); Mean Corpuscular Volume 86.2 fL (80-100); Platelet Count 285 X10^3/uL (150-400)
[2025-02-27 07:50] LABS: Hemoglobin A1C% w Est Avg Glu 5.1 % (4.0-6.0)
[2025-02-27 08:06] LABS: Alanine Aminotransferase 17 IU/L (<35); Albumin 4.3 g/dL (3.5-5.0); Albumin Globulin Ratio 1.9 (1.0-2.8); Alkaline Phosphatase 43 U/L (38-126); Blood Urea Nitrogen 26 mg/dL (7-17); Calcium 9.3 mg/dL (8.4-10.2); Carbon Dioxide 30 mmol/L (22-32); Chloride 104 mmol/L (98-107); Cholesterol 235 mg/dL (140-199); Estimated Glomerular Filt Rate > 60 mL/min (>60); Globulin 2.3 g/dL (1.7-4.1); Glucose 94 mg/dL (70-99); HDL Cholesterol 75 mg/dL (40-60); HEMOLYSIS < 15 (0-50); Potassium 4.3 mmol/L (3.4-5.1); Sodium 137 mmol/L (137-145); Total Protein 6.6 g/dL (6.3-8.2); Triglycerides 65 mg/dL (35-150)
[2025-02-27 11:33] LABS: Ferritin 21 ng/mL (11-264)
[2025-02-27 13:45] LABS: HEMOLYSIS < 15 (0-50); Iron 93 ug/dL (37-170)
[2025-02-27 13:56] LABS: Percent Iron Saturation 33 % (15-50); Total Iron Binding Capacity 284 ug/dL (265-497); Transferrin 237 mg/dL (206-381)
[2025-02-28 03:39] LABS: CRP, High Sensitivity 0.27 mg/L (0.00-3.00)
== END ==
PROVIDERS: PCP Family Medicine; Referring Provider Family Medicine; Visit Provider Family Medicine
DX: Z00.00 Encounter for general adult medical examination without abnormal findings (principal); D64.9 Anemia, unspecified; E78.00 Pure hypercholesterolemia, unspecified; D50.9 Iron deficiency anemia, unspecified
CPT/HCPCS: 36415; 80053; 80061; 82728; 83036; 83540; 83550; 85025; 86140

== ENCOUNTER → 2025-07-06 07:40 | Outpatient (CLI) | payer MEDICARE, OTHER, SELFPAY ==
[2024-08-31 12:27] VITALS: BMI 21.4
[2025-07-06 08:53] LABS: Add Manual Diff / Slide Review NO; Hematocrit 33.4 % (36-46); Hemoglobin 11.8 g/dL (12.0-16.0); Lymphocytes Absolute Auto 1900 /uL (1100-4500); Mean Corpuscular HGB Conc 35.2 % (30-36); Mean Corpuscular Hemoglobin 30.0 PG (26-34); Mean Corpuscular Volume 85.3 fL (80-100); Platelet Count 257 X10^3/uL (150-400)
[2025-07-06 09:37] LABS: Alanine Aminotransferase 18 IU/L (<35); Albumin 4.1 g/dL (3.5-5.0); Albumin Globulin Ratio 1.9 (1.0-2.8); Alkaline Phosphatase 47 U/L (38-126); Blood Urea Nitrogen 17 mg/dL (7-17); Calcium 8.9 mg/dL (8.4-10.2); Carbon Dioxide 26 mmol/L (22-32); Chloride 105 mmol/L (98-107); Estimated Glomerular Filt Rate > 60 mL/min (>60); Globulin 2.2 g/dL (1.7-4.1); Glucose 89 mg/dL (70-99); HEMOLYSIS < 15 (0-50); Potassium 4.1 mmol/L (3.4-5.1); Sodium 139 mmol/L (137-145); Total Protein 6.3 g/dL (6.3-8.2)
[2025-07-06 10:11] LABS: Ferritin 71 ng/mL (11-264)
[2025-07-06 11:07] LABS: Vitamin D 25 Hydroxy (D3) 40.6 ng/mL (30.0-100.0)
== END ==
PROVIDERS: PCP Family Medicine; Referring Provider Family Medicine; Visit Provider Family Medicine
DX: E78.00 Pure hypercholesterolemia, unspecified (principal); R53.82 Chronic fatigue, unspecified; D64.9 Anemia, unspecified; E55.9 Vitamin D deficiency, unspecified
CPT/HCPCS: 36415; 80053; 82306; 82728; 85025

== ENCOUNTER → 2025-08-12 16:33 | Outpatient (CLI) | payer MEDICARE, OTHER, SELFPAY ==
[2024-08-31 12:27] VITALS: BMI 21.4
[2025-08-12 18:22] LABS: Influenza A - CEPHEID Flu A NEGATIVE (NEGATIVE); Influenza B - CEPHEID Flu B NEGATIVE (NEGATIVE)
[2025-08-12 18:26] LABS: COVID-19 CEPHEID 4-PLEX PCR Negative (Negative)
== END ==
PROVIDERS: PCP Family Medicine; Referring Provider Chiropractor; Visit Provider Chiropractor
DX: R05.1 Acute cough (principal)
CPT/HCPCS: 87637

== ENCOUNTER 2025-08-12 22:43 | Emergency (ER) | payer MEDICARE, OTHER, SELFPAY ==
[2024-08-31 12:27] VITALS: BMI 21.4
[2025-08-12 23:00] VITALS: BP 144/82; PULSE 72; RESP 16; TEMP 36.7; O2SAT 98; BMI 22.1
[2025-08-12] MEDS: PROPARACAINE 0.5% OPHTH SOL 2 DROPS EYE-OP (23:13)
[2025-08-12] MEDS: FLUORESCEIN 1 MG STRIP EYE-RIGHT (23:13)
--- NOTE | 2025-08-12 23:42 | ED.EYEPROB ---
HPI - Eye Problem General Chief complaint: Eye Problems Stated complaint: sinus infection, eye pressure x5 hrs Time Seen by Provider: 08/12/25 23:06 Source: patient Mode of arrival: Ambulatory History of Present Illness HPI Narrative: 64-year-old female with a history of right eye irritation that started yesterday afternoon. Patient was seen at urgent care and started on antibiotics for a potential sinus infection. Today the eye is more irritated and there is more pressure. Patient does wear contact lenses and has taken the contact lens out of the right eye. She denies any drainage but does have some mild redness. No other symptoms no fever chills. Related Data Home Medications ?Medication ?Instructions ?Recorded ?Confirmed tretinoin 0.05 % topical cream 1 applic topical DAILY PRN Rash 11/24/23 08/12/25 triamcinolone acetonide 0.1 % 1 applic topical DAILY PRN Rash 11/24/23 08/12/25 topical cream Previous Rx's ?Medication ?Instructions ?Recorded scopolamine base 1 mg over 3 days 1 patch transdermal Q3D PRN motion 10/31/24 transdermal patch sickness #4 ea bupropion HCl 150 mg 24 hr tablet, 150 mg PO QAM #90 tabs 05/31/25 extended release amoxicillin 875 mg-potassium 1 tab PO Q12H 10 days #20 tabs 08/12/25 clavulanate 125 mg tablet proparacaine 0.5 % eye drops 1 drp EYE-RIGHT Q5-10M PRN 08/12/25 anesthesia 2 days #15 mL Allergies Allergy/AdvReac Type Severity Reaction Status Date / Time No Known Drug Allergies Allergy Verified 08/12/25 22:59 Review of Systems Review of Systems ROS Unobtainable: All systems reviewed & are unremarkable except as noted in HPI and below Patient History Medical History (Updated 08/12/25 @ 23:45 by Florentin Infante MD) Perineal cyst in female Cervical spine disease (~2013) Abnormal Pap smear of cervix (~1993) Wears contact lenses Multiple fractures of ribs (~04/2024) Spleen injury (~04/2024) Osteoarthritis (~2009) Anxiety Breast cancer (~2010) Colon polyps Closed left clavicular fracture Pelvic fracture Acne Depression (~1986) Foot fracture (~2011) Mumps Measles Chicken pox Human papilloma virus Surgical History H/O tubal ligation Anesthesia Status post colonoscopy Status post hysteroscopy Status post dilation and curettage Status post sclerotherapy of varicose veins (~1998) Status post breast biopsy Status post breast biopsy Family History (Updated 09/05/23 @ 16:36 by Christina Machado) Father Cancer Diabetes mellitus Heart disease Hypertension High cholesterol Mental health problem Mother History of heart disease Mental health problem Lung cancer Hypertension Sister Mental health problem Sister Heart disease Hyperlipidemia Mental health problem Sister Mental health problem Grandmother Cancer Hypertension Grandfather Stroke Grandmother Mental health problem Lung cancer Social History marital status: number of children: 3 household members: spouse lives independently: Yes occupational status: other Smoking Status: Never smoker alcohol intake: current substance use type: does not use Smoking Status: Never smoker alcohol intake frequency: a few times a week Exam Narrative Exam Narrative: General: Patient appears to be in no acute distress, acting appropriately Head: normocephalic, atraumatic, HEENT: Pupils equal round reactive, eyes tracking well, neck supple, no JVD, right eye looks irritated, red, Heart: regular rate and rhythm, no murmurs, rubs, or gallops heard Lungs: clear to auscultation, no adventitious sounds Abdomen: soft , nontender, nondistended, positive bowel sounds Neurological: no focal neurological signs, moving all extremities well, alert and oriented x3, Psych: good judgment ,good insight, mood is normal. Initial Vital Signs Initial Vital Signs: Vital Signs Temperature 98.0 F 08/12/25 23:00 Pulse Rate 72 08/12/25 23:00 Respiratory Rate 16 08/12/25 23:00 Blood Pressure 144/82 H 08/12/25 23:00 Pulse Oximetry 98 08/12/25 23:00 Oxygen Delivery Method Room Air 08/12/25 23:00 Course Orders Ordered: Discontinued Medications Fluorescein Sodium (Fluorescein 1 Mg Strip) 1 mg EYE-RIGHT NOW ONE Stop: 08/12/25 23:04 Last Admin: 08/12/25 23:13 Dose: 1 mg Documented By: SH Proparacaine HCl (Proparacaine 0.5% Ophth Liv) 2 drops EYE-OP NOW ONE Stop: 08/12/25 23:04 Last Admin: 08/12/25 23:13 Dose: 2 drop Documented By: PRINCE Vital Signs Vital signs: Vital Signs - 8 hr 08/12/25 23:00 Temperature 98.0 F Pulse Rate 72 Respiratory Rate 16 Blood Pressure 144/82 H Pulse Oximetry 98 Oxygen Delivery Method Room Air MDM - Eye Problem MDM Narrative Medical decision making narrative: 64-year-old female with some right eye irritation. Contact lens was removed and after the eye was anesthetized with a drop of proparacaine, patient's eye was examined using both the UV light and a slit-lamp after some dye was placed as well. No obvious foreign body or abrasion was seen. Patient's symptoms did improve some with the proparacaine drop. Another drop was placed prior to discharge and the bottle was prescribed for the patient to be used for the next couple days until she can see her customer sales distributor. Patient's visual acuity remained normal. Follow up with any new symptoms occur. Discharge Plan Departure Patient Disposition: Home Clinical Impression: Discomfort of right eye Instructions: DI for Eye Pain Activity Restrictions/Additional Instructions: Continue the use the proparacaine eyedrops as needed every 5-10 minutes times 5-7 doses. Follow up with Optometry on Thursday. Can come back sooner if irritation is not resolved. Prescriptions: New proparacaine 0.5 % drops 1 drp EYE-RIGHT Q5-10M MDD 5-7 drops PRN (Reason: anesthesia) 2 Days Qty: 15 0RF No Action amoxicillin-pot clavulanate 875-125 mg tablet 1 tab PO Q12H 10 Days Qty: 20 0RF bupropion HCl 150 mg tablet extended release 24 hr 150 mg PO QAM Qty: 90 1RF Rx Instructions: Take one tablet by mouth once a day. triamcinolone acetonide 0.1 % cream 1 applic topical DAILY PRN (Reason: Rash) tretinoin 0.05 % cream 1 applic topical DAILY PRN (Reason: Rash) Rx Instructions: to BLEs scopolamine base 1 mg over 3 days patch 3 day 1 patch transdermal Q3D PRN (Reason: motion sickness) Qty: 4 0RF Referrals: Suzanne Marcos, [Primary Care Provider, Medical] Stand Alone Forms: Patient Portal/API
== END 2025-08-13 00:02 | disposition home or self-care (01) ==
PROVIDERS: Emergency Provider Family Medicine; PCP Family Medicine
DX: H57.11 Ocular pain, right eye (principal)
CPT/HCPCS: 87637; 99282